=== PATIENT | female | born 1935 | race Caucasian/White ===

== ENCOUNTER 2018-08-30 19:05 | Emergency (ER) | payer MEDICARE, MEDICAID ==
[2018-08-30] MEDS ORDERED: LIDOCAINE 1% INJ-PF (10 MG/ML) 30 ML SDV ONE (20:29)
--- NOTE | 2018-08-30 21:08 | ER Document Report ---
ED General - General Chief Complaint: Wound Infection Stated Complaint: WOUND CHECK Time Seen by Provider: 08/30/18 19:32 Cannot obtain history due to: Dementia Notes: Patient is an 82-year-old female with history of dementia, chronic venous stasis in bilateral lower extremities, history of recurrent wounds to the bilateral lower extremities, presents from [facility] by EMS due to concerns of abscesses along her right lower extremity. His areas have apparently been present for the past several weeks. Patient been treated with a course of antibiotics while in the nursing facility without any effect. Patient was transported to the emergency department tonight due to concerns of failure of resolution. Nothing is apparently new or different that because transport. Patient is demented, unable to provide meaningful history. TRAVEL OUTSIDE OF THE [place] IN LAST 30 DAYS: No Past Medical History - General Information source: Patient - Social History Smoking Status: Never Smoker Frequency of alcohol use: None Drug Abuse: None Lives with: Custodial Family History: Reviewed & Not Pertinent Patient has suicidal ideation: No Patient has homicidal ideation: No - Past Medical History Cardiac Medical History: Reports: Hx Atrial Fibrillation Renal/ Medical History: Denies: Hx Peritoneal Dialysis Review of Systems - Review of Systems Notes: Constitutional: Negative for fever. HENT: Negative for sore throat. Eyes: Negative for visual changes. Cardiovascular: Negative for chest pain. Respiratory: Negative for shortness of breath. Gastrointestinal: Negative for abdominal pain, vomiting or diarrhea. Genitourinary: Negative for dysuria. Musculoskeletal: Negative for back pain. Skin: Positive for multiple abscesses of the right lower extremity Neurological: Negative for headaches, weakness or numbness. 10 point ROS negative except as marked above and in HPI. Physical Exam - Vital signs Vitals: Temp Resp BP Pulse Ox 98.5 F 16 99/58 L 100 08/30/18 19:12 08/30/18 19:12 08/30/18 19:12 08/30/18 19:12 Interpretation: Normal Notes: PHYSICAL EXAMINATION: GENERAL: Somewhat frail, elderly female in no acute distress HEAD: Atraumatic, normocephalic. EYES: Pupils equal round and reactive to light, extraocular movements intact, sclera anicteric, conjunctiva are normal. ENT: nares patent, oropharynx clear without exudates. Moist mucous membranes. NECK: Normal range of motion, supple without lymphadenopathy LUNGS: Breath sounds clear to auscultation bilaterally and equal. No wheezes rales or rhonchi. HEART: Regular rate and rhythm without murmurs ABDOMEN: Soft, nontender, normoactive bowel sounds. No guarding, no rebound. No masses appreciated. EXTREMITIES: Normal range of motion, no pitting or edema. No cyanosis. NEUROLOGICAL: No focal neurological deficits. Moves all extremities spontaneously and on command. PSYCH: Moderately anxious SKIN: Warm, Dry, normal turgor, There is a 2 x 2 centimeter abscess on the lateral aspect of the right lower externally just above the level of the knee. No surrounding erythema. There is a much smaller abscess approximately 0.25 x 0.25 cm overlying the proximal tibial plateau surface. Course - Re-evaluation Re-evalutation: 08/30/18 21:05 Patient presents with multiple abscesses on her right lower extremity. There was a 2 x 2 centimeter abscess on the lateral aspect of the right lower externally just above the level of the knee. This was incised and drained with expression of a large amount of purulent material. No surrounding erythema. There is a much smaller abscess approximately 0.25 x 0.25 cm overlying the proximal tibial plateau surface. This likewise was incised and drained with expression of approximately 1 mL of purulent material. Patient is otherwise very well in appearance. Has had chronic wounds on her lower extremity and the daughter at bedside is quite frustrated she states that this is been an ongoing issue for at least the last 1 month. The patient apparently was treated with oral antibiotics without any relief. No indication for labs or imaging at this point as patient is otherwise well in appearance, vitals within normal limits. No reported fever. Patient has been started on doxycycline and cephalexin. Wound dressing has been applied. I recommended outpatient follow-up with wound management. At this time will discharge with return precautions and follow-up recommendations. Verbal discharge instructions given a the bedside and opportunity for questions given. Medication warnings reviewed. Family is in agreement with this plan and has verbalized understanding of return precautions and the need for primary care follow-up in the next 24-72 hours. - Vital Signs Vital signs: Temp Pulse Resp BP Pulse Ox 97.4 F 20 104/66 98 08/30/18 22:01 08/30/18 20:01 08/30/18 22:00 08/30/18 22:01 Procedures - Incision and Drainage Right Leg Type: Complex, Multiple Anesthetic type: 1% Lidocaine mL's of anesthetic: 5 Blade size: 11 I&D procedure: Chlorprep applied Incision Method: Incision made by scalpel Amount/type of drainage: Total of 10 cc of purulent drainage expressed Discharge - Discharge Clinical Impression: Abscess of right lower extremity, Bilateral lower extremity edema Condition: Fair Disposition: HOME-SNF (ED ONLY) Additional Instructions: You were seen for an abscess that required drainage. Please clean this area with soap and water twice daily and apply a topical antibiotic. Dress the area after each cleaning. The patient needs to be followed up in wound management. These wounds require close attention to prevent progression to sepsis. I would also advised that the patient be placed in compression stockings 12 hours daily. Please return if you develop fever of greater than 100.4 F, vomiting, the pain at the site worsens, you notice spreading redness from the area, or you have any other symptoms that are concerning to you. Prescriptions: Cephalexin Monohydrate [Keflex 500 mg Capsule] 500 mg PO Q6H 7 Days capsule Doxycycline Hyclate 100 mg PO BID #14 capsule Referrals: VALERIA DENT MD [ACTIVE STAFF] - Follow up in 3-5 days
[2018-08-30 22:50] VITALS: BP 104/66
== END 2018-08-30 22:15 ==
LOC: ER 19:05
DX: L02.415 Cutaneous abscess of right lower limb (principal); R60.0 Localized edema; F03.90 Unspecified dementia, unspecified severity, without behavioral disturbance, psychotic disturbance, mood disturbance, and anxiety
CPT/HCPCS: 10061; 99284; J3490

== ENCOUNTER → 2018-12-22 | Outpatient (CLI) | payer MEDICARE, OTHER, MEDICAID ==
--- NOTE | 2018-12-23 11:39 | XCELERA REPORT ---
[address] [address] Lower Extremity Venous Evaluation Procedure: A bilateral duplex scan of the lower extremity veins was performed. The evaluation included responses to compression and other maneuvers with patient in the supine and standing positions to assess venous insufficiency. Right Sided Venous Evaluation Impressive subcutaneous edema. Deep venous system evaluation shows patent veins with no obstruction or significant reflux identified. Saphena Femoral junction: no reflux. Femoral vein reflux: no reflux Greater Saphenous vein, Proximal thigh: reflux: 3.5 seconds, 3.3 mm diameter. Greater Saphenous vein, Mid thigh: reflux: 1.0 seconds.4.2 mm diameter. Greater Saphenous vein, Distal thigh: reflux:None. Greater Saphenous vein, Proximal below knee: reflux: 1.5 seconds, 3.8 mm diameter. Greater Saphenous vein, Mid below knee: reflux: 2 seconds, 4.5mm diameter. Greater Saphenous vein, Distal below knee: reflux: 1.5 seconds, 3.8 mm diameter. No significant Perforators identified. Left Sided Venous Evaluation Deep venous system evaluation shows patent veins with reflux identified. Saphena Femoral junction: 0.1 second reflux. Femoral vein reflux: 0.8 second reflux. Popliteal vein reflux: no reflux. Greater Saphenous vein, Unable to evaluate. No significant Perforators identified. Interpretation Summary There is no evidence of deep vein thrombosis bilaterally. Significant superficial reflux on the right, edema also. Very limited study on the left with some deep reflux elucidated. Name: ZEB FREY Age: 83 yrs Gender: Female : 1935 Patient Status: Outpatient Patient Location: Study Date: 12/22/2018 10:40 AM Reason For Study: RT CALF ULCER Ordering Physician: BRUNILDA SMITH Performed By: Ko Altamirano : BRUNILDA SMITH > Nick Brian
--- NOTE | 2018-12-23 12:01 | XCELERA REPORT ---
[address] [address] Lower Extremity Arterial Evaluation Name: ZEB FREY Age: 83 yrs Gender: Female : 1935 Patient Status: Outpatient Patient Location: Study Date: 12/22/2018 10:13 AM Procedure: A color flow and duplex scan of the lower extremity arteries was performed bilaterally with velocity and waveform anaylsis. 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 Left Side Arterial Evaluation Normal velocity and triphasic waveforms noted from the Common Femoral artery to the infrageniculate vessels Ankle Brachial index not obtained due to inability to cooperate. Interpretation Summary No hemodynamically significant lesions in the bilateral lower extremities, on duplex imaging, at rest. : BRUNILDA SMITH > Nick Brian
== END ==
LOC: SP 09:33
PROVIDERS: ATTEND Nurse Practitioner Family
DX: L97.212 Non-pressure chronic ulcer of right calf with fat layer exposed (principal)
CPT/HCPCS: 93925; 93970

== ENCOUNTER 2018-12-26 10:45 | Emergency (ER) | payer MEDICARE, OTHER, MEDICAID ==
--- NOTE | 2018-12-26 11:18 | ER Document Report ---
ED Extremity Problem, Lower - General Chief Complaint: Knee Pain Stated Complaint: POSSIBLE INFECTION Time Seen by Provider: 12/26/18 11:06 Primary Care Provider: BRUNILDA SMITH MEETING/EVENT PLANNER, MEETING/EVENT PLANNER [Primary Care Provider] - Follow up as needed Notes: 83-year-old female presents to the ER with a red swollen painful leg. Patient has had issues with cellulitis and abscess of her right lower extremity. The patient is seen by wound care. An x-ray was done this morning which showed questionable osteomyelitis of the proximal tibia. Radiologist called the patient back to the ER. Patient is very hard of hearing and not a good hist orian. States her leg aches but it aches all the time she denies fever chills. She is [place] any other complaints no chest pain or shortness of breath. TRAVEL OUTSIDE OF THE [place] IN LAST 30 DAYS: No - Related Data Allergies/Adverse Reactions: No Known Allergies Allergy (Unverified 12/26/18 11:11) Past Medical History - Social History Smoking Status: Never Smoker Chew tobacco use (# tins/day): No Frequency of alcohol use: None Drug Abuse: None Family History: Reviewed & Not Pertinent Patient has suicidal ideation: No Patient has homicidal ideation: No - Past Medical History Cardiac Medical History: Reports: Hx Atrial Fibrillation Renal/ Medical History: Denies: Hx Peritoneal Dialysis Past Surgical History: Reports: Hx Orthopedic Surgery Review of Systems - Review of Systems Constitutional: denies: Chills, Fever Cardiovascular: Edema. denies: Chest pain Respiratory: denies: Short of breath Musculoskeletal: Joint pain Skin: Change in color, Lesions -: Yes All other systems reviewed and negative Physical Exam - Vital signs Vitals: Temp 98.4 F 12/26/18 10:57 - Notes Notes: GENERAL_APPEARANCE: well_nourished, alert, cooperative VITALS: reviewed, see vital signs table. HEAD: no_swelling\tenderness on the head. EYES: conjunctiva_clear. NOSE: no_nasal_discharge. MOUTH: (-)decreased moisture. THROAT: no_tonsilar_inflammation, no_airway_obstruction. no_lymphadenopathy NECK: supple, no_neck_tenderness, (-)thyromegaly. BACK: no_back_tenderness. CHEST_WALL: no_chest_tenderness. LUNGS: no_wheezing, no_rales, no_rhonchi, (-)accessory muscle use, good air exchange bilateral. HEART: normal_rate, normal_rhythm ABDOMEN: normal_BS, soft, no_abd_tenderness, (-)guarding, (-)rebound, no_or ganomegaly, no_abd_masses. EXTREMITIES: 3+ pitting edema bilateral there multiple weeping wounds on both legs more so the right and the left there is a ulcer present on the right leg upper about 3 x 4 cm. There is redness mild cellulitis. The knee itself is mildly swollen there is a midline incision on the right. Consistent with knee replacement. There is no crepitus or subcutaneous emphysema or pulses present distal. SKIN: warm, dry, good_color, no_rash. MENTAL_STATUS: speech_clear, oriented_X_3, normal_affect, responds_appropriately to questions. Course - Re-evaluation Re-evalutation: 12/26/18 11:17 83-year-old female presents with concern for worsening leg infection and osteomyelitis. Patient has had a knee replacement years back and there may be osteomyelitis. I spoken with interventional radiology who will aspirate the joint. We will send fluid for evaluation. Otherwise we will do lactic acid and septic work-up. 12/26/18 16:01 She was sent over there for aspiration but there was not a joint effusion as previously thought a small amount of fluid was only able to be aspirated. This was sent for Gram stain and culture but there was not enough fluid to do cell count or differential. White count was 10.6. She does not have a fever sed rate was below 100. Certainly osteomyelitis was a consideration however the patient does have terrible lymphedema both legs and does have a little bit of likely chronic infection. I have called over to wound care to the provider there. They are very familiar with the patient. I think the plan we are going to do is let the patient go back to the custodial. They will work the patient up further for her chronic leg wounds and she may need an MRI of the knee to differentiate further if there is osteomyelitis there. The Gram stain and culture of the small amount of fluid is still pending. Again the patient has chronic lymphedema which is likely the cause of what was thought to be a joint effusion. Wound care we will follow-up with the patient is able to have an MRI of her knee then that is what I would recommend. As of now I think it is prudent just to wait to see if anything grows out of the culture of the aspiration otherwise I think this is likely just due to her chronic lymphedema transudate of fluid. Wound care has agreed to follow the patient up. Spoke at length with the patient and she is agreeable to this and is actually demanding to go home at this time. - Vital Signs Vital signs: Temp Pulse Resp BP Pulse Ox 98.3 F 20 103/51 L 97 12/26/18 12:27 12/26/18 15:01 12/26/18 15:01 12/26/18 15:01 - Laboratory Result Diagrams: 12/26/18 11:30 12/26/18 11:30 Laboratory results interpreted by me: 12/26/18 12/26/18 12/26/18 11:30 11:30 11:30 WBC 10.6 H RBC 3.51 L Hgb 10.9 L Hct 33.2 L RDW 15.5 H Seg Neutrophils % 79.0 H Absolute Neutrophils 8.4 H ESR 69 H Carbon Dioxide 31 H C-React Prot High Sens > 15.0000 H - Diagnostic Test Radiology reviewed: Reports reviewed Radiology results interpreted by me: 12/26/18 16:01 Hip Aspiration/Injection 12/26/18 00:00 IMPRESSION: Right knee aspirated under fluoroscopy, fluid sent for Gram stain culture and sensitivity Guidance Fluoroscopy 12/26/18 11:11 IMPRESSION: Right knee aspirated under fluoroscopy, fluid sent for Gram stain culture and sensitivity Discharge - Discharge Clinical Impression: Leg wound, right Qualifiers: Encounter type: initial encounter Qualified Code(s): S81.801A - Unspecified open wound, right lower leg, initial encounter Condition: Good Disposition: HOME, SELF-CARE Instructions: Foot or Leg Ulcer ([facility]) Additional Instructions: Please follow-up with your program eligibility specialist. They are aware of the findings. If you develop any fever return to the ER immediately Referrals: BRUNILDA SMITH NP, MEETING/EVENT PLANNER [Primary Care Provider] - Follow up as needed
[2018-12-26 11:58] LABS: ABSOLUTE BASOPHILS # (AUTO) 0.1 10^3/uL (0.0-0.2); ABSOLUTE EOSINOPHILS # (AUTO) 0.2 10^3/uL (0.0-0.6); ABSOLUTE LYMPHOCYTES (AUTO) 1.5 10^3/uL (0.5-4.7); ABSOLUTE MONOCYTES (AUTO) 0.4 10^3/uL (0.1-1.4); ABSOLUTE NEUT (AUTO) 8.4 10^3/uL (1.7-8.2); BASOPHILS % (AUTO) 1.2 % (0-2); EOSINOPHILS % (AUTO) 1.9 % (0-6); HEMATOCRIT 33.2 % (36.0-47.0); HEMOGLOBIN 10.9 g/dL (12.0-15.5); LYMPHOCYTES % (AUTO) 13.9 % (13-45); MEAN CORPUSCULAR HEMOGLOBIN 31.1 pg (27.0-33.4); MEAN CORPUSCULAR HGB CONC 32.9 g/dL (32.0-36.0); MEAN CORPUSCULAR VOLUME 95 fl (80-97); PLATELET COUNT 279 10^3/uL (150-450); RED BLOOD COUNT 3.51 10^6/uL (3.72-5.28); RED CELL DISTRIBUTION WIDTH 15.5 % (11.5-14.0); TOTAL CELLS COUNTED % (AUTO) 100 %; WHITE BLOOD COUNT 10.6 10^3/uL (4.0-10.5)
[2018-12-26 12:22] LABS: ANION GAP 5 (5-19); BLOOD UREA NITROGEN 18 mg/dL (7-20); CALCIUM 8.9 mg/dL (8.4-10.2); CARBON DIOXIDE 31 mmol/L (22-30); CHLORIDE 102 mmol/L (98-107); GLUCOSE 109 mg/dL (75-110); POTASSIUM 4.5 mmol/L (3.6-5.0); SODIUM 137.8 mmol/L (137-145)
[2018-12-26 12:38] LABS: ERYTHROCYTE SEDIMENTATION RATE 69 mm/hr (0-30)
--- NOTE | 2018-12-26 13:13 | RADIOLOGY REPORT (SQ) ---
EXAM DESCRIPTION: FLUORO/NEEDLE PLACEMENT; INJECT/ASPIR HIP/SHLDR/KNEE COMPLETED DATE/TIME: 12/26/2018 12:29 pm; 12/26/2018 12:32 pm REASON FOR STUDY: Fluoroscopy guided joint aspiration right knee; OSTEOMYELITIS IN RIGHT KNEE COMPARISON: Right knee films 12/26/2018 FLUOROSCOPY TIME: 32 seconds 1 digital radiographic image saved to PACS. TECHNIQUE: Fluoroscopic guided right knee aspirate LIMITATIONS: None. PROCEDURE: After written consent and assessment were obtained, the patient was brought into the fluo roscopy room and placed supine on the table. The patient's right knee was prepped in a sterile fashi on and an entry site was selected under live fluoroscopic guidance. The entry site was anesthetized w ith 1% lidocaine. A 18 gauge needle was advanced through the skin and into the right knee suprapatell ar recess. After approximately 2 ml was drained, the needle was removed and a sterile bandage was pl aced of the site. Specimens were sent to microbiology for Gram stain culture and sensitivity. Findi ngs discussed with Dr. Negro in the emergency room. FINDINGS: Right knee aspirated, fluid sent for Gram stain culture and sensitivity IMPRESSION: Right knee aspirated under fluoroscopy, fluid sent for Gram stain culture and sensitivit y COMMENT: Patient medication list reviewed: Yes- Quality ID# [id number]:Eligible professional attests to doc umenting in the medical record they obtained, updated, or reviewed the patient's current medications. . Quality ID 145: Final reports for procedures using fluoroscopy that document radiation exposure jace vamsi, or exposure time and number of fluorographic images (if radiation exposure indices are not avail able) TECHNICAL DOCUMENTATION: JOB ID: [id number] [employer]- All Rights Reserved Reading location - IP/workstation name: [email or web address]-
--- NOTE | 2018-12-26 13:13 | RADIOLOGY REPORT (SQ) ---
EXAM DESCRIPTION: FLUORO/NEEDLE PLACEMENT; INJECT/ASPIR HIP/SHLDR/KNEE COMPLETED DATE/TIME: 12/26/2018 12:29 pm; 12/26/2018 12:32 pm REASON FOR STUDY: Fluoroscopy guided joint aspiration right knee; OSTEOMYELITIS IN RIGHT KNEE COMPARISON: Right knee films 12/26/2018 FLUOROSCOPY TIME: 32 seconds 1 digital radiographic image saved to PACS. TECHNIQUE: Fluoroscopic guided right knee aspirate LIMITATIONS: None. PROCEDURE: After written consent and assessment were obtained, the patient was brought into the fluo roscopy room and placed supine on the table. The patient's right knee was prepped in a sterile fashi on and an entry site was selected under live fluoroscopic guidance. The entry site was anesthetized w ith 1% lidocaine. A 18 gauge needle was advanced through the skin and into the right knee suprapatell ar recess. After approximately 2 ml was drained, the needle was removed and a sterile bandage was pl aced of the site. Specimens were sent to microbiology for Gram stain culture and sensitivity. Findi ngs discussed with Dr. Negro in the emergency room. FINDINGS: Right knee aspirated, fluid sent for Gram stain culture and sensitivity IMPRESSION: Right knee aspirated under fluoroscopy, fluid sent for Gram stain culture and sensitivit y COMMENT: Patient medication list reviewed: Yes- Quality ID# [id number]:Eligible professional attests to doc umenting in the medical record they obtained, updated, or reviewed the patient's current medications. . Quality ID 145: Final reports for procedures using fluoroscopy that document radiation exposure jace vamsi, or exposure time and number of fluorographic images (if radiation exposure indices are not avail able) TECHNICAL DOCUMENTATION: JOB ID: [id number] [email or web address]- All Rights Reserved Reading location - IP/workstation name: [email or web address]-
[2018-12-26 16:36] VITALS: BP 97/58
== END 2018-12-26 16:41 | disposition home or self-care (01) ==
LOC: ER 10:45
DX: S81.801A Unspecified open wound, right lower leg, initial encounter (principal); I48.91 Unspecified atrial fibrillation; R60.9 Edema, unspecified; X58.XXXA Exposure to other specified factors, initial encounter
CPT/HCPCS: 20610; 36415; 77002; 80048; 83605; 85025; 85652; 86141; 87040; 87070; 87075; 87077; 87186; 87205; 99285

== ENCOUNTER → 2018-12-26 | Outpatient (CLI) | payer MEDICARE, OTHER, MEDICAID ==
--- NOTE | 2018-12-26 10:07 | RADIOLOGY REPORT (SQ) ---
EXAM DESCRIPTION: KNEE RIGHT 2 VIEWS COMPLETED DATE/TIME: 12/26/2018 9:14 am REASON FOR STUDY: CUTANEOUS ABCESS OF R LOWER LIMB COMPARISON: None. NUMBER OF VIEWS: Two views. TECHNIQUE: AP and lateral radiographic images acquired of the right knee. LIMITATIONS: None. FINDINGS: MINERALIZATION: Osteoporotic BONES: Total knee replacement with patellar resurfacing. There is lucency between the tibial compone nt and [place] tibia worrisome for loosening or infection There is bony resorption along the inferior half of the patella worrisome for osteomyelitis. JOINT: Small suprapatellar knee joint effusion. There is inflammation along Hoffa's fat pad SOFT TISSUES: Prepatellar cellulitis is present with soft tissue swelling OTHER: No other significant finding. IMPRESSION: Findings worrisome for osteomyelitis involving the inferior half of the patella. Inflam mation in Hoffa's fat pad with joint effusion is worrisome for septic arthritis. COMMENT: Pertinent findings on the imaging study reported as a CRITICAL RESULT to Fannie Wu RN at09:55 on 12/26/2018. Category of Critical Result: septic/infected joint TECHNICAL DOCUMENTATION: JOB ID: [id number] [employer]- All Rights Reserved Reading location - IP/workstation name: [email or web address]
== END ==
LOC: RAD 08:58
PROVIDERS: ATTEND Nurse Practitioner Family
DX: L02.415 Cutaneous abscess of right lower limb (principal); M86.8X6 Other osteomyelitis, lower leg; Z96.651 Presence of right artificial knee joint

== ENCOUNTER → 2019-01-08 | Outpatient (CLI) | payer MEDICARE ==
--- NOTE | 2019-01-08 13:29 | RADIOLOGY REPORT (SQ) ---
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 Multiplanar images include fat sensitive s equences as T1, water sensitive sequences as FST2 or STIR, cartilage sensitive sequences as FSPD, and gradient echo sequences. LIMITATIONS: Metallic joint replacement, mental attenuation pulse sequences utilized. FINDINGS: There is a superficial skin ulcer over the anterior right knee soft tissues, just medial t o the anterior tibial tubercle. A sinus tract from this wound is seen coursing from the skin surface down to the anterior edge of the medial tibial plateau adjacent to hardware. This is best shown on sagittal image 17 and axial images 18-23. Prior joint space aspiration on 12/26/2018 yielded a cultur e positive for staph. Findings are worrisome for infected tibial prosthesis with sinus tract to the skin. There is diffuse cellulitis with skin thickening and subcutaneous edema along the medial and lateral aspects of the knee joint. JOINT AND BURSAE: No gross suprapatellar knee joint effusion. However, there is synovial thickening medially, best shown on axial images 12-17. No Spring's cyst. BONE CORTEX AND MARROW: Bone cortex between the prosthesis and knik bone is not visualized due to f erromagnetic artifact. Distal femoral metaphysis bone marrow signal is normal. Proximal tibial meta physis bone marrow signal is grossly normal ACL: Joint replacement PCL: Joint replaced MCL: Joint replacement LCL: Joint replacement MEDIAL MENISCUS: Not visualized, joint replacement LATERAL MENISCUS: Not visualized, joint replacement MEDIAL COMPARTMENT: Joint replacement LATERAL COMPARTMENT: Joint replacement PATELLA: Patellar silastic component of the knee replacement is identified. Adjacent lower half of the patella is partially fragmented and demineralized worrisome for infection EXTENSOR MECHANISM: Intact. Quadriceps and patella tendons normal. SOFT TISSUES: Diffuse cellulitis in the skin and subcutaneous fat. Profound atrophy of the quadricep s and calf muscles OTHER: No other significant finding. IMPRESSION: Findings worrisome for a draining sinus tract from the medial tibial plateau. Indistinct lower pole patella, worrisome for infection TECHNICAL DOCUMENTATION: JOB ID: [id number] [employer]- All Rights Reserved Reading location - IP/workstation name: [email or web address]
== END ==
LOC: RAD 10:27
PROVIDERS: ATTEND Nurse Practitioner Family
DX: L97.814 Non-pressure chronic ulcer of other part of right lower leg with necrosis of bone (principal); Z96.651 Presence of right artificial knee joint

== ENCOUNTER → 2019-01-21 | Day surgery (SDC) | payer MEDICARE, OTHER, MEDICAID ==
[~2019-01-21] MED LIST: CEFAZOLIN 2 GM/D5W RTU 2 GM/50 ML RTUPB IV PRN; NORMAL SALINE 10 ML SDV (AFTER EACH USE) IV PRN; NORMAL SALINE 10 ML SDV (SCHEDULED) IV SCH
--- NOTE | 2019-01-21 11:24 | RADIOLOGY REPORT (SQ) ---
EXAM DESCRIPTION: PICC INSERTION; FLUORO/CV PLACEMENT; U/S GUIDE FOR VASCULAR ACCESS COMPLETED DATE/TIME: 01/21/2019 11:00 am REASON FOR STUDY: IV ABX; INFECT/INFLM REACTION DUE TO UNSP INT JOINT PROSTH, INIT (T84.50XA) T84.50 XA INFECT/INFLM REACTION DUE TO UNSP INT JOINT PROSTH, COMPARISON: None. FLUOROSCOPY TIME: 1 minutes 47 seconds 2 images saved to PACS. TECHNIQUE: Fluoroscopic and ultrasound guided PICC placement. LIMITATIONS: None. PROCEDURE: After written consent and assessment were obtained, the patient was brought into the [facility] roscopy room and placed supine on the table. Ultrasound evaluation of potential access sites were per formed. After successfully identifying a patent right brachial vein, the right arm was prepped and dr aped in a sterile fashion along with the ultrasound probe. The entry site was anesthetized with 1% li docaine. A 21 gauge 7 cm needle was advanced through the skin and into the brachial vein under live u ltrasound guidance. An ultrasound image was saved to PACS confirming access site. A .018 guide wire was then inserted through the needle and into the venous system. The needle was then removed and an 11 blade scalpel was used to make a 1cm skin incision. A 5 fr peel-away sheath was advanced over the wire and into the venous system. A measurement was then made using the existing wire and live fluoro scopic guidance. The wire was then removed and trimmed. The PICC was advanced through the peel-away s carleen and into the venous system. The peel-away sheath was removed and the catheter was adhered to th e patients arm with a stat lock. The catheter was then aspirated and flushed and a sterile bandage wa s placed over the access site. A fluoroscopic spot image was saved to PACS confirming the catheter t ip within the superior vena cava. IMPRESSION: SUCCESSFUL PLACEMENT OF A 5 FR DUAL LUMEN 35 CM PICC IN THE RIGHT BASILIC VEIN. COMMENT: Patient medication list reviewed: Yes- Quality ID# 130:Eligible professional attests to doc umenting in the medical record they obtained, updated, or reviewed the patient's current medications. . Quality ID 145: Final reports for procedures using fluoroscopy that document radiation exposure jace vamsi, or exposure time and number of fluorographic images (if radiation exposure indices are not avail able) Quality ID #76: The patient was prepped and draped using maximum sterile barrier technique including cap, mask, sterile gown, sterile gloves, a large sterile sheet, hand hygiene, and 2% Chlorhexidine fo r cutaneous antisepsis. When ultrasound is used, sterile ultrasound techniques are followed requiring sterile gel and sterile probes. TECHNICAL DOCUMENTATION: JOB ID: [id number]- All Rights Reserved rev-12/27 Reading location - IP/workstation name: [email or web address]
--- NOTE | 2019-01-21 11:24 | RADIOLOGY REPORT (SQ) ---
EXAM DESCRIPTION: PICC INSERTION; FLUORO/CV PLACEMENT; U/S GUIDE FOR VASCULAR ACCESS COMPLETED DATE/TIME: 01/21/2019 11:00 am REASON FOR STUDY: IV ABX; INFECT/INFLM REACTION DUE TO UNSP INT JOINT PROSTH, INIT (T84.50XA) T84.50 XA INFECT/INFLM REACTION DUE TO UNSP INT JOINT PROSTH, COMPARISON: None. FLUOROSCOPY TIME: 1 minutes 47 seconds 2 images saved to PACS. TECHNIQUE: Fluoroscopic and ultrasound guided PICC placement. LIMITATIONS: None. PROCEDURE: After written consent and assessment were obtained, the patient was brought into the [facility] roscopy room and placed supine on the table. Ultrasound evaluation of potential access sites were per formed. After successfully identifying a patent right brachial vein, the right arm was prepped and dr aped in a sterile fashion along with the ultrasound probe. The entry site was anesthetized with 1% li docaine. A 21 gauge 7 cm needle was advanced through the skin and into the brachial vein under live u ltrasound guidance. An ultrasound image was saved to PACS confirming access site. A .018 guide wire was then inserted through the needle and into the venous system. The needle was then removed and an 11 blade scalpel was used to make a 1cm skin incision. A 5 fr peel-away sheath was advanced over the wire and into the venous system. A measurement was then made using the existing wire and live fluoro scopic guidance. The wire was then removed and trimmed. The PICC was advanced through the peel-away s carleen and into the venous system. The peel-away sheath was removed and the catheter was adhered to th e patients arm with a stat lock. The catheter was then aspirated and flushed and a sterile bandage wa s placed over the access site. A fluoroscopic spot image was saved to PACS confirming the catheter t ip within the superior vena cava. IMPRESSION: SUCCESSFUL PLACEMENT OF A 5 FR DUAL LUMEN 35 CM PICC IN THE RIGHT BASILIC VEIN. COMMENT: Patient medication list reviewed: Yes- Quality ID# 130:Eligible professional attests to doc umenting in the medical record they obtained, updated, or reviewed the patient's current medications. . Quality ID 145: Final reports for procedures using fluoroscopy that document radiation exposure jace vamsi, or exposure time and number of fluorographic images (if radiation exposure indices are not avail able) Quality ID #76: The patient was prepped and draped using maximum sterile barrier technique including cap, mask, sterile gown, sterile gloves, a large sterile sheet, hand hygiene, and 2% Chlorhexidine fo r cutaneous antisepsis. When ultrasound is used, sterile ultrasound techniques are followed requiring sterile gel and sterile probes. TECHNICAL DOCUMENTATION: JOB ID: [id number] [employer]- All Rights Reserved rev-12/27 Reading location - IP/workstation name: [email or web address]
[2019-01-21 13:31] VITALS: BP 98/50
== END ==
LOC: RAD 09:21
PROVIDERS: ATTEND Surgery
DX: T84.50XA Infection and inflammatory reaction due to unspecified internal joint prosthesis, initial encounter (principal); X58.XXXA Exposure to other specified factors, initial encounter
CPT/HCPCS: 36569; 77001; 76937; C1769; J1642

== ENCOUNTER 2019-06-27 07:17 | Inpatient (IN) | payer MEDICARE, OTHER, MEDICAID ==
[2019-06-27] MEDS ORDERED: RINGERS LACTATED IV PRN (08:19)
[2019-06-27 08:23] LABS: ABSOLUTE BASOPHILS # (AUTO) 0.1 10^3/uL (0.0-0.2); ABSOLUTE EOSINOPHILS # (AUTO) 0.1 10^3/uL (0.0-0.6); ABSOLUTE LYMPHOCYTES (AUTO) 1.5 10^3/uL (0.5-4.7); ABSOLUTE MONOCYTES (AUTO) 0.7 10^3/uL (0.1-1.4); ABSOLUTE NEUT (AUTO) 12.1 10^3/uL (1.7-8.2); BASOPHILS % (AUTO) 0.7 % (0-2); EOSINOPHILS % (AUTO) 0.6 % (0-6); HEMATOCRIT 28.9 % (36.0-47.0); HEMOGLOBIN 9.7 g/dL (12.0-15.5); LYMPHOCYTES % (AUTO) 10.5 % (13-45); MEAN CORPUSCULAR HEMOGLOBIN 30.3 pg (27.0-33.4); MEAN CORPUSCULAR HGB CONC 33.6 g/dL (32.0-36.0); MEAN CORPUSCULAR VOLUME 90 fl (80-97); MONOCYTES % (AUTO) 4.6 % (3-13); PLATELET COUNT 217 10^3/uL (150-450); RED CELL DISTRIBUTION WIDTH 15.6 % (11.5-14.0); SEGMENTED NEUTROPHILS % (AUTO) 83.6 % (42-78); TOTAL CELLS COUNTED % (AUTO) 100 %; WHITE BLOOD COUNT 14.5 10^3/uL (4.0-10.5)
--- NOTE | 2019-06-27 08:24 | ER Document Report ---
ED Fever - General Chief Complaint: Fever Stated Complaint: FEVER/SEPSIS Time Seen by Provider: 06/27/19 08:00 Information source: Emergency Med Personnel, Outside Facility Records Cannot obtain history due to: Dementia Notes: 83-year-old female presents for altered mental status and fever. Patient's temperature was 101.5 at intermediate and Tylenol was given around 230 this morning at the facility. Patient's lactic was 0.5 per EMS. She is currently being treated for right hip decubitus ulcer and cutaneous abscesses of her right lower limb. Has past medical history significant for dementia, insufficiency, bradycardia, allergic contact dermatitis, hypotension, colitis of the right l ower limb thyroid, vitamin D deficiency, hypokalemia, atrial fibrillation, lymphedma, and UTI. It appears that patient is currently on Bactrim for bacterial infection of right lateral hip which appears to be started on 06/25 days. Patient is also on Eliquis for A. fib and Lasix for edema. Patient is also on levothyroxine for and potassium. TRAVEL OUTSIDE OF THE [place] IN LAST 30 DAYS: No - Related Data Allergies/Adverse Reactions: No Known Allergies Allergy (Unverified 12/26/18 11:11) Past Medical History - Social History Smoking Status: Unknown if Ever Smoked Family History: Reviewed & Not Pertinent - Past Medical History Cardiac Medical History: Reports: Hx Atrial Fibrillation, Hx Hypertension Denies: Hx Coronary Artery Disease, Hx Heart Attack Pulmonary Medical History: Denies: Hx Asthma, Hx Bronchitis, Hx COPD, Hx Pneumonia Neurological Medical History: Denies: Hx Cerebrovascular Accident, Hx Seizures Renal/ Medical History: Denies: Hx Peritoneal Dialysis Musculoskeletal Medical History: Denies Hx Arthritis Past Surgical History: Reports: Hx Orthopedic Surgery Review of Systems - Review of Systems -: Yes ROS unobtainable due to patient's medical condition - Dementia and confusion Physical Exam - Vital signs Vitals: Pulse Ox 92 06/27/19 07:29 - Notes Notes: GENERAL: Well-appearing, well-nourished and in no acute distress. HEAD: Atraumatic, normocephalic. EYES: Pupils equal round and reactive to light, extraocular movements intact, sclera anicteric, conjunctiva are normal. NECK: Normal range of motion, supple without lymphadenopathy or JVD. LUNGS: Breath sounds clear to auscultation bilaterally and equal. No wheezes rales or rhonchi. HEART: Regular rate and rhythm without murmurs, rubs or gallops. ABDOMEN: Soft, nontender. No guarding, no rebound. No masses appreciated. EXTREMITIES: Normal range of motion, no pitting or edema. No clubbing or cyanosis. NEUROLOGICAL: Confused. PSYCH: Normal mood, normal affect. SKIN: Warm, Dry, stage II decubitus ulcer noted to right hip, various small cutaneous abscesses noted to right leg Course - Re-evaluation Re-evalutation: 06/27/19 83-year-old female presents from intermediate for altered mental status and fever. Patient's temp was 101.5 at ED and patient was given Tylenol. Sepsis protocol was initiated. Blood cultures were drawn. Sepsis bolus given. Broad-spectrum antibiotics were given. 06/27/19 09:27 CXR concerning for possible pneumonia. Azithromycin IV added to cover for atypical pneumonia. Mild leukocytosis on labwork. Pt to be admitted for sepsis/pneumonia. 06/27/19 09:36 Discussed plan of care with attending, Dr. Fontaine, who agrees. - Vital Signs Vital signs: Temp Pulse Resp BP Pulse Ox 99.9 F 78 20 96/54 L 95 06/27/19 07:48 06/27/19 07:48 06/27/19 10:06 06/27/19 10:06 06/27/19 10:06 - Laboratory Result Diagrams: 06/27/19 07:32 06/27/19 07:32 Laboratory results interpreted by me: 06/27/19 06/27/19 06/27/19 07:32 07:32 07:32 WBC 14.5 H RBC 3.20 L Hgb 9.7 L Hct 28.9 L RDW 15.6 H Lymph % (Auto) 10.5 L Absolute Neuts (auto) 12.1 H Seg Neutrophils % 83.6 H PT 17.1 H VBG pH Sodium 132.8 L Glucose 124 H AST 13 L Total Protein 5.1 L Albumin 2.4 L Urine Protein Urine Blood Urine Urobilinogen Ur Leukocyte Esterase Urine Ascorbic Acid 06/27/19 06/27/19 07:32 08:10 WBC RBC Hgb Hct RDW Lymph % (Auto) Absolute Neuts (auto) Seg Neutrophils % PT VBG pH 7.45 H Sodium Glucose AST Total Protein Albumin Urine Protein 100 H Urine Blood SMALL H Urine Urobilinogen 4.0 H Ur Leukocyte Esterase LARGE H Urine Ascorbic Acid 40 H Discharge - Discharge Clinical Impression: Pneumonia Qualifiers: Pneumonia type: due to unspecified organism Laterality: right Lung location: upper lobe of lung Qualified Code(s): J18.9 - Pneumonia, unspecified organism Sepsis Qualifiers: Sepsis type: sepsis due to unspecified organism Sepsis acute organ dysfunction status: without acute organ dysfunction Qualified Code(s): A41.9 - Sepsis, unspecified organism Fever Qualifiers: Fever type: unspecified Qualified Code(s): R50.9 - Fever, unspecified Altered mental status Qualifiers: Altered mental status type: unspecified Qualified Code(s): R41.82 - Altered mental status, unspecified Condition: Stable Disposition: ADMITTED INPATIENT Admitting Provider: Carly (Hospitalist)
[2019-06-27 08:25] LABS: VENOUS BLOOD BASE EXCESS 2.4 mmol/L; VENOUS BLOOD HCO3 26.5 mmol/L (20-32); VENOUS BLOOD PCO2 38.6 mmHg (35-63); VENOUS BLOOD PH 7.45 (7.30-7.42)
[2019-06-27 08:27] LABS: APPEARANCE,URINE CLOUDY; BILIRUBIN,URINE NEGATIVE (NEGATIVE); COLOR,URINE AMBER; GLUCOSE, URINE NEGATIVE (NEGATIVE); KETONES,URINE NEGATIVE (NEGATIVE); LEUKOCYTE ESTERASE,URINE LARGE (NEGATIVE); NITRITE,URINE NEGATIVE (NEGATIVE); PROTEIN,URINE 100 mg/dL (NEGATIVE); URINE SPECIFIC GRAVITY 1.023
[2019-06-27 08:27] LABS: INTERNATIONAL RATION (INR) 1.38; PROTHROMBIN TIME 17.1 SEC (11.4-15.4)
[2019-06-27] MEDS ORDERED: VANCOMYCIN HCL 0 MG in DEXTROSE 5%-WATER 250 ML IV NR ×2 (08:30→10:30)
[2019-06-27 08:32] LABS: ALBUMIN 2.4 g/dL (3.5-5.0); ALKALINE PHOSPHATASE 82 U/L (38-126); ANION GAP 8 (5-19); ASPARTATE AMINO TRANSFERASE 13 U/L (14-36); BILIRUBIN,DIRECT 0.3 mg/dL (0.0-0.4); BILIRUBIN,TOTAL 0.7 mg/dL (0.2-1.3); BLOOD UREA NITROGEN 19 mg/dL (7-20); CALCIUM 8.4 mg/dL (8.4-10.2); CARBON DIOXIDE 27 mmol/L (22-30); CHLORIDE 98 mmol/L (98-107); GLUCOSE 124 mg/dL (75-110); POTASSIUM 3.9 mmol/L (3.6-5.0); TOTAL PROTEIN 5.1 g/dL (6.3-8.2)
[2019-06-27] MEDS ORDERED: PIPERACILLIN SODIUM/TAZOBACTAM 4.5 GM in NORMAL SALINE 100 ML IV PRN ×2 (08:46→09:30)
--- NOTE | 2019-06-27 09:25 | RADIOLOGY REPORT (SQ) ---
EXAM DESCRIPTION: CHEST SINGLE VIEW COMPLETED DATE/TIME: 06/27/2019 8:42 am REASON FOR STUDY: ? Sepsis COMPARISON: None. EXAM PARAMETERS: NUMBER OF VIEWS: One view. TECHNIQUE: Single frontal radiographic view of the chest acquired. RADIATION DOSE: NA LIMITATIONS: None. FINDINGS: LUNGS AND PLEURA: Densities are seen over the anterior right 1st 2nd and 3rd ribs which co uld either be patchy upper lobe airspace disease or old healed rib fractures. There is patchy bibasilar airspace disease atelectasis versus pneumonia. No pleural effusion. No pneumothorax. MEDIASTINUM AND HILAR STRUCTURES: No masses. Contour normal. HEART AND VASCULAR STRUCTURES: Moderate cardiomegaly BONES: No gross acute findings HARDWARE: None in the chest. OTHER: No other significant finding. IMPRESSION: Bibasilar airspace disease atelectasis versus pneumonia. Densities over the right upper lobe could be upper lobe airspace disease or healed rib fractures TECHNICAL DOCUMENTATION: JOB ID: [id number] [employer]- All Rights Reserved Reading location - IP/workstation name: [email or web address]
[2019-06-27] MEDS ORDERED: AZITHROMYCIN INJ 500 MG VIAL IV ONE (09:26)
--- NOTE | 2019-06-27 10:14 | PDOC H&P ---
History of Present Illness Admission Date/PCP: 06/27/2019 VALERIA DENT MD Patient complains of: Fever History of Present Illness: ZEB FREY is a 83 year old female from [facility] who presents to the ER for altered mental status and fever. Patient temperature 101.5 at snf Tylenol was given around 230 this morning. She is being currently being treated for a right hip decubitus ulcer and cutaneous abscess of her right lower extremity. Has a history significant for dementia, and insufficiency, bradycardia, allergic contact dermatitis, hypertension, and colitis of the right lower extremity. Patient currently taking Bactrim at [facility]. She had no treatment other than what is been mentioned and no aggravating factors. Past Medical History Cardiac Medical History: Reports: Atrial Fibrillation, Hypertension Denies: Coronary Artery Disease, Myocardial Infarction Pulmonary Medical History: Denies: Asthma, Bronchitis, Chronic Obstructive Pulmonary Disease (COPD), Pneumonia Neurological Medical History: Denies: Seizures Musculoskeltal Medical History: Denies: Arthritis Hematology: Denies: Anemia Past Surgical History Past Surgical History: Reports: Orthopedic Surgery Social History Information Source: Patient Lives with: [facility] Smoking Status: Never Smoker Electronic Cigarette use?: No Frequency of Alcohol Use: None Hx Recreational Drug Use: No Drugs: None Hx Prescription Drug Abuse: No - Advance Directive Resuscitation Status: Full Code Family History Family History: Hypertension Parental Family History Reviewed: Yes Children Family History Reviewed: Yes Sibling(s) Family History Reviewed.: Yes Medication/Allergy Home Medications: Cephalexin Monohydrate [Keflex 500 mg Capsule] 500 mg PO Q6H 7 Days capsule 08/30/18 Doxycycline Hyclate 100 mg PO BID #14 capsule 08/30/18 Allergies/Adverse Reactions: No Known Allergies Allergy (Unverified 12/26/18 11:11) Review of Systems Constitutional: PRESENT: fever(s). ABSENT: chills, headache(s), weight gain, weight loss Eyes: ABSENT: visual disturbances Ears: ABSENT: hearing changes Cardiovascular: ABSENT: chest pain, dyspnea on exertion, edema, orthropnea, palpitations Respiratory: ABSENT: cough, hemoptysis Gastrointestinal: ABSENT: abdominal pain, constipation, diarrhea, hematemesis, hematochezia, nausea, vomiting Genitourinary: ABSENT: dysuria, hematuria Musculoskeletal: ABSENT: joint swelling Integumentary: ABSENT: rash, wounds Neurological: ABSENT: abnormal gait, abnormal speech, confusion, dizziness, focal weakness, syncope Psychiatric: ABSENT: anxiety, depression, homidical ideation, suicidal ideation Endocrine: ABSENT: cold intolerance, heat intolerance, polydipsia, polyuria Hematologic/Lymphatic: ABSENT: easy bleeding, easy bruising Physical Exam Vital Signs: Temp Pulse Resp BP Pulse Ox 99.9 F 78 21 H 102/56 L 94 06/27/19 07:48 06/27/19 07:48 06/27/19 10:00 06/27/19 09:57 06/27/19 10:00 Intake & Output 06/26/19 06/27/19 06/28/19 06:59 06:59 06:59 Weight 88.4 kg General appearance: PRESENT: no acute distress, well-developed, well-nourished Head exam: PRESENT: atraumatic, normocephalic Eye exam: PRESENT: conjunctiva pink, EOMI, PERRLA. ABSENT: scleral icterus Ear exam: PRESENT: normal external ear exam Mouth exam: PRESENT: moist, tongue midline Neck exam: ABSENT: carotid bruit, JVD, lymphadenopathy, thyromegaly Respiratory exam: PRESENT: clear to auscultation drew. ABSENT: rales, rhonchi, wheezes Cardiovascular exam: PRESENT: bradycardia, irregular rhythm. ABSENT: diastolic murmur, rubs, systolic murmur Pulses: PRESENT: normal dorsalis pedis pul Vascular exam: PRESENT: normal capillary refill GI/Abdominal exam: PRESENT: normal bowel sounds, soft. ABSENT: distended, guarding, mass, organolmegaly, rebound, tenderness Rectal exam: PRESENT: deferred Extremities exam: PRESENT: full ROM, +1 edema, other - Left hip decubitus ulcer. ABSENT: calf tenderness, clubbing, pedal edema Neurological exam: PRESENT: alert, awake, other - Patient answering questions appropriately at this time. ABSENT: motor sensory deficit Psychiatric exam: PRESENT: appropriate affect, normal mood. ABSENT: homicidal ideation, suicidal ideation Skin exam: PRESENT: dry, intact, warm, other - Leaking wound on the front of the right ackerman just below her patella. ABSENT: cyanosis, rash Results Laboratory Results: 06/27/19 07:32 06/27/19 07:32 06/27/19 06/27/19 06/27/19 07:32 07:32 07:32 WBC 14.5 H RBC 3.20 L Hgb 9.7 L Hct 28.9 L MCV 90 MCH 30.3 MCHC 33.6 RDW 15.6 H Plt Count 217 Seg Neutrophils % 83.6 H VBG pH 7.45 H VBG pCO2 38.6 VBG HCO3 26.5 VBG Base Excess 2.4 Sodium 132.8 L Potassium 3.9 Chloride 98 Carbon Dioxide 27 Anion Gap 8 BUN 19 Creatinine 0.66 Est GFR ( Amer) > 60 Glucose 124 H Lactic Acid Calcium 8.4 Total Bilirubin 0.7 AST 13 L Alkaline Phosphatase 82 Total Protein 5.1 L Albumin 2.4 L Urine Color Urine Appearance Urine pH Ur Specific [place] Urine Protein Urine Glucose (UA) Urine Ketones Urine Blood Urine Nitrite Ur Leukocyte Esterase Urine WBC (Auto) Urine RBC (Auto) 06/27/19 06/27/19 07:32 08:10 WBC RBC Hgb Hct MCV MCH MCHC RDW Plt Count Seg Neutrophils % VBG pH VBG pCO2 VBG HCO3 VBG Base Excess Sodium Potassium Chloride Carbon Dioxide Anion Gap BUN Creatinine Est GFR ( Amer) Glucose Lactic Acid 0.7 Calcium Total Bilirubin AST Alkaline Phosphatase Total Protein Albumin Urine Color MELINA Urine Appearance CLOUDY Urine pH 7.0 Ur Specific [place] 1.023 Urine Protein 100 H Urine Glucose (UA) NEGATIVE Urine Ketones NEGATIVE Urine Blood SMALL H Urine Nitrite NEGATIVE Ur Leukocyte Esterase LARGE H Urine WBC (Auto) 53 Urine RBC (Auto) 2 06/27/19 07:32 Troponin I < 0.012 Impressions: Chest X-Ray 06/27/19 07:45 IMPRESSION: Bibasilar airspace disease atelectasis versus pneumonia. Densities over the right upper lobe could be upper lobe airspace disease or healed rib fractures Assessment and Plan - Diagnosis (1) SIRS (systemic inflammatory response syndrome) Is this a current diagnosis for this admission?: Yes Plan: 06/27/2019-at this time I do not believe patient is septic. Patient has a history of hypertension. Patient's blood pressure 95 systolic. Patient also has a defibrillation running in the high 50s low 60s. Patient is getting IV fluids, antibiotics. Awaiting culture offending organism. Chest x-ray shows bilateral lower lobe density suggestive of pneumonia (2) Healthcare-associated pneumonia Is this a current diagnosis for this admission?: Yes Plan: 06/27/2019-as patient is a resident at [facility] I will place patient on Vanco Zosyn per pharmacy dosing. Will await culture offending organism. (3) Fever Qualifiers: Fever type: unspecified Qualified Code(s): R50.9 - Fever, unspecified Is this a current diagnosis for this admission?: Yes Plan: 06/27/2019-Tylenol PRN (4) Hyperglycemia Is this a current diagnosis for this admission?: Yes Plan: 06/27/2019-A1c, carbohydrate controlled diet with sliding scale insulin before meals and at bedtime. (5) Atrial fibrillation Is this a current diagnosis for this admission?: Yes Plan: 06/27/2019-continue Eliquis. Will start other home medications once medication reconciliation has been complete - Time Time Spent with patient: 35 or more minutes - Inpatient Certification Based on my medical assessment, after consideration of the patient's comorbidities, presenting symptoms, or acuity I expect that the services needed warrant INPATIENT care.: Yes I certify that my determination is in accordance with my understanding of Medicare's requirements for reasonable and necessary INPATIENT services [42 CFR 412.3e].: Yes Medical Necessity: Need for IV Antibiotics
[2019-06-27] MEDS ORDERED: MAG HYDROX/AL HYDROX/SIMETH SUSP 30 ML UDCUP PO PRN (10:15)
[2019-06-27] MEDS ORDERED: ACETAMINOPHEN 325 MG TABLET PO PRN (10:15)
[2019-06-27] MEDS ORDERED: ONDANSETRON HCL INJ/PF 4 MG/2 ML SDV IV PRN (10:15)
[2019-06-27] MEDS ORDERED: ALBUTEROL SULFATE 0.083% NEB 2.5 MG/3 ML AMPUL NEB PRN (10:15)
[2019-06-27] MEDS ORDERED: TEMAZEPAM 15 MG CAPSULE PO PRN (10:15)
[2019-06-27] MEDS: NORMAL SALINE 1000 ML 1,000 ML IV PRN ×2 (11:02→21:12)
--- NOTE | 2019-06-27 11:36 | EKG REPORT ---
SEVERITY:- ABNORMAL ECG - ATRIAL FIBRILLATION BORDERLINE T ABNORMALITIES, DIFFUSE LEADS : Confirmed by: Buffy Mclean MD 27-Jun-2019 11:36:05
[2019-06-27] MEDS: PIPERACILLIN SODIUM/TAZOBACTAM 3.375 GM in NORMAL SALINE 100 ML IV SCH ×2 (11:38→18:02)
[2019-06-27] MEDS ORDERED: PIPERACILLIN SODIUM/TAZOBACTAM 4.5 GM in NORMAL SALINE 100 ML IV SCH (12:00)
[2019-06-27] MEDS: VANCOMYCIN HCL 1,000 MG in DEXTROSE 5%-WATER 250 ML IV SCH ×2 (13:08→21:11)
[2019-06-27] MEDS ORDERED: HEPARIN SOD (PORCINE) 5,000 UNIT/ML 1 ML VIAL SUBCUT SCH (14:00)
[2019-06-27] MEDS ORDERED: LIDOCAINE 1% INJ-PF (10 MG/ML) 30 ML SDV ONE (16:27)
--- NOTE | 2019-06-27 17:55 | Operative Report ---
Operative Report DATE OF SURGERY: 06/27/19 PREOPERATIVE DIAGNOSIS: Deep soft tissue abscess right hip POSTOPERATIVE DIAGNOSIS: Same OPERATION: Excisional debridement of skin, subcutaneous tissue right hip abscess with debridement of subcutaneous tunneling, irrigation and packing SURGEON: SHIRLEY SHI ANESTHESIA: Local TISSUE REMOVED OR ALTERED: Infected skin and subcutaneous tissue COMPLICATIONS: None ESTIMATED BLOOD LOSS: 25 cc INTRAOPERATIVE FINDINGS: See below PROCEDURE: Consent was provided by the patient's family. The patient was placed in the left lateral cubitus position, right hip exposed. The right hip was prepped with Betadine. Surgical timeout conducted. Findings were significant for multiple punctate pus draining areas over the right hip. This covered an area of approximately 4 cm in diameter. Intervening skin was necrotic in areas. We anesthetized with 1% lidocaine with the right hip at the level of skin and subcutaneous tissue. We then excised the right hip infection with a #10 blade, removing a full-thickness 4 cm diameter plug of skin and subcutaneous tissue. This was sent for Gram stain culture and sensitivity. Underlying fat was debrided with index finger, and curette. The infection extended up underneath superior skin flap for several centimeters at least 6. Loculations were broken up with the index finger. Additional fatty necrotic pieces were evacuated from the wound bed. The wound was irrigated with saline, then packed open with 2 strips of Betadine soaked Kerlix dressing. Patient tolerated procedure. 4 x 4's and tape applied. Plan: 1. Continue empiric antibiotic therapy 2. We will perform dressing changes tomorrow 3. Follow-up on wound cultures.
[2019-06-27] MEDS: PANTOT AC/MIN OIL/PET HY-PHL OINT 50 GM TOP SCH (18:03)
[2019-06-28] MEDS: PIPERACILLIN SODIUM/TAZOBACTAM 3.375 GM in NORMAL SALINE 100 ML IV SCH ×4 (01:09→17:31)
[2019-06-28] MEDS: NORMAL SALINE 1000 ML 1,000 ML IV PRN ×2 (05:27→13:13)
[2019-06-28 06:00] LABS: HEMATOCRIT 27.3 % (36.0-47.0); HEMOGLOBIN 9.1 g/dL (12.0-15.5); MEAN CORPUSCULAR HEMOGLOBIN 30.1 pg (27.0-33.4); MEAN CORPUSCULAR HGB CONC 33.2 g/dL (32.0-36.0); MEAN CORPUSCULAR VOLUME 91 fl (80-97); PLATELET COUNT 206 10^3/uL (150-450); RED BLOOD COUNT 3.01 10^6/uL (3.72-5.28); RED CELL DISTRIBUTION WIDTH 15.5 % (11.5-14.0); WHITE BLOOD COUNT 13.7 10^3/uL (4.0-10.5)
[2019-06-28 06:22] LABS: ANION GAP 6 (5-19); BLOOD UREA NITROGEN 16 mg/dL (7-20); CALCIUM 8.3 mg/dL (8.4-10.2); CARBON DIOXIDE 27 mmol/L (22-30); CHLORIDE 101 mmol/L (98-107); GLUCOSE 113 mg/dL (75-110); PHOSPHORUS 3.2 mg/dL (2.5-4.5); POTASSIUM 3.7 mmol/L (3.6-5.0)
--- NOTE | 2019-06-28 08:52 | PDOC PROGRESS REPORT ---
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 ABSENT: rales, wheezes Cardiovascular exam: PRESENT: irregular rhythm. ABSENT: diastolic murmur, rubs, systolic murmur Pulses: PRESENT: +1 pedal pulses bilateral Vascular exam: PRESENT: normal capillary refill GI/Abdominal exam: PRESENT: normal bowel sounds, soft. ABSENT: distended, guarding, mass, organolmegaly, rebound, tenderness Neurological exam: PRESENT: awake. ABSENT: oriented to person, oriented to place, oriented to time, oriented to situation Psychiatric exam: PRESENT: appropriate affect, normal mood. ABSENT: homicidal ideation, suicidal ideation Skin exam: PRESENT: dry, intact, warm, other - Right hip dressing clean dry and intact. Patient underwent surgical I&D by Dr. Herrmann yesterday. Cultures are pending. Continue empiric antibiotics. ABSENT: cyanosis, rash Results Laboratory Results: 06/28/19 05:47 06/28/19 05:47 06/28/19 06/28/19 05:47 05:47 WBC 13.7 H RBC 3.01 L Hgb 9.1 L Hct 27.3 L MCV 91 MCH 30.1 MCHC 33.2 RDW 15.5 H Plt Count 206 Sodium 133.6 L Potassium 3.7 Chloride 101 Carbon Dioxide 27 Anion Gap 6 BUN 16 Creatinine 0.59 Est GFR ( Amer) > 60 Glucose 113 H Calcium 8.3 L Phosphorus 3.2 Magnesium 1.8 06/27/19 07:30 Blood Blood Culture (PCR) - Final Staphylococcus Species 06/27/19 07:32 Troponin I < 0.012 Impressions: Chest X-Ray 06/27/19 07:45 IMPRESSION: Bibasilar airspace disease atelectasis versus pneumonia. Densities over the right upper lobe could be upper lobe airspace disease or healed rib fractures Assessment and Plan - Diagnosis (1) SIRS (systemic inflammatory response syndrome) Is this a current diagnosis for this admission?: Yes Plan: 06/27/2019-at this time I do not believe patient is septic. Patient has a history of hypertension. Patient's blood pressure 95 systolic. Patient also has a defibrillation running in the high 50s low 60s. Patient is getting IV fluids, antibiotics. Awaiting culture offending organism. Chest x-ray shows bilateral lower lobe density suggestive of pneumonia 06/28/2019-improved. Patient remains on empiric antibiotics awaiting cultures. Patient is receiving IV fluids at this time I will decrease the rate patient will continue oral intake as well. (2) Healthcare-associated pneumonia Is this a current diagnosis for this admission?: Yes Plan: 06/27/2019-as patient is a resident at [facility] I will place patient on Vanco Zosyn per pharmacy dosing. Will await culture offending organism. 06/28/2019-patient remains on Vanco and Zosyn. Awaiting cultures patient is much more a wake this morning however she is pleasantly confused and not able to answer questions. Will follow (3) Fever Qualifiers: Fever type: unspecified Qualified Code(s): R50.9 - Fever, unspecified Is this a current diagnosis for this admission?: Yes Plan: 06/27/2019-Tylenol PRN 06/28/2019-stable follow (4) Hyperglycemia Is this a current diagnosis for this admission?: Yes Plan: 06/27/2019-A1c, carbohydrate controlled diet with sliding scale insulin before meals and at bedtime. [id number]. Patient's A1c within normal limits. Continue sliding scale insulin in the patient's acute phase of illness. (5) Atrial fibrillation Is this a current diagnosis for this admission?: Yes Plan: 06/27/2019-continue Eliquis. Will start other home medications once medication reconciliation has been complete 06/28/2019-stable continue current therapy (6) Unspecified open wound, right hip, initial encounter Is this a current diagnosis for this admission?: Yes Plan: 06/28/2019-patient presented from [facility] yesterday with a right hip wound that was being treated outpatient. Upon initial examination was found to have possible pus pocket. Surgery was consulted and she underwent a surgical I&D yesterday with approximately 4 cm area removed. Area was sent for cultures. We will continue patient on empiric antibiotics. - Time Time Spent with patient: 15-24 minutes - Inpatient Certification Based on my medical assessment, after consideration of the patient's comorbidities, presenting symptoms, or acuity I expect that the services needed warrant INPATIENT care.: Yes I certify that my determination is in accordance with my understanding of Medicare's requirements for reasonable and necessary INPATIENT services [42 CFR 412.3e].: Yes Medical Necessity: Need For IV Fluids, Need for IV Antibiotics
--- NOTE | 2019-06-28 09:21 | PDOC PROGRESS REPORT ---
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 Some drainage post debridement last p.m. from right hip Physical Exam Vital Signs: Temp Pulse Resp BP Pulse Ox 97.4 F 67 20 103/58 L 95 06/28/19 07:26 06/28/19 07:26 06/28/19 07:26 06/28/19 07:26 06/28/19 07:26 Intake & Output 06/27/19 06/28/19 06/29/19 06:59 06:59 06:59 Intake Total 5792 Output Total 50 Balance 5742 Weight 90.7 kg General appearance: PRESENT: other - No significant changes, patient is politely demented Extremities exam: PRESENT: other - Patient rolled in left lateral decubitus position. Betadine soaked dressing removed. Decreased erythema and edema around the debridement site. Packing removed. No foul smell or residual pus identified. Wound cavity which tracks cephalad irrigated with saline, and repacked with a slightly moistened 4 x 4 gauze. Results Laboratory Results: 06/28/19 05:47 06/28/19 05:47 06/28/19 06/28/19 05:47 05:47 WBC 13.7 H RBC 3.01 L Hgb 9.1 L Hct 27.3 L MCV 91 MCH 30.1 MCHC 33.2 RDW 15.5 H Plt Count 206 Sodium 133.6 L Potassium 3.7 Chloride 101 Carbon Dioxide 27 Anion Gap 6 BUN 16 Creatinine 0.59 Est GFR ( Amer) > 60 Glucose 113 H Calcium 8.3 L Phosphorus 3.2 Magnesium 1.8 06/27/19 07:30 Blood Blood Culture (PCR) - Final Staphylococcus Species 06/27/19 07:32 Troponin I < 0.012 Impressions: Chest X-Ray 06/27/19 07:45 IMPRESSION: Bibasilar airspace disease atelectasis versus pneumonia. Densities over the right upper lobe could be upper lobe airspace disease or healed rib fractures Assessment & Plan - Diagnosis (1) Soft tissue infection Is this a current diagnosis for this admission?: Yes Plan: Impression: Soft tissue infection right hip status post bedside debridement 18 hours ago, clinically improved with duction and soft tissue erythema, induration and drainage. Persisting leukocytosis. On empiric antibiotic therapy Recommendations: 1. No indication for further surgical debridement 2. We will start dressing changes twice daily; orders written and reviewed with nursing staff 3. Follow-up on wound cultures, sensitivity. (2) Sepsis Qualifiers: Sepsis type: sepsis due to unspecified organism Sepsis acute organ dysfunction status: without acute organ dysfunction Qualified Code(s): A41.9 - Sepsis, unspecified organism Is this a current diagnosis for this admission?: Yes - Time Time Spent with patient: 15-24 minutes
[2019-06-28] MEDS: VANCOMYCIN HCL 1,000 MG in DEXTROSE 5%-WATER 250 ML IV SCH ×2 (09:57→21:56)
[2019-06-28] MEDS: PANTOT AC/MIN OIL/PET HY-PHL OINT 50 GM TOP SCH ×2 (09:59→17:31)
[2019-06-28] MEDS: OXYCODONE-ACETAMINOPHEN 5-325 MG TABLET PO PRN (14:16)
[2019-06-29] MEDS: PIPERACILLIN SODIUM/TAZOBACTAM 3.375 GM in NORMAL SALINE 100 ML IV SCH ×3 (00:42→13:15)
[2019-06-29] MEDS: OXYCODONE-ACETAMINOPHEN 5-325 MG TABLET PO PRN ×3 (01:56→20:56)
[2019-06-29] MEDS: NORMAL SALINE 1000 ML 1,000 ML IV PRN ×2 (01:57→15:37)
[2019-06-29 06:08] LABS: HEMATOCRIT 26.2 % (36.0-47.0); HEMOGLOBIN 8.6 g/dL (12.0-15.5); MEAN CORPUSCULAR VOLUME 91 fl (80-97); PLATELET COUNT 219 10^3/uL (150-450); RED BLOOD COUNT 2.88 10^6/uL (3.72-5.28); RED CELL DISTRIBUTION WIDTH 15.6 % (11.5-14.0); WHITE BLOOD COUNT 15.1 10^3/uL (4.0-10.5)
[2019-06-29 06:28] LABS: ANION GAP 8 (5-19); BLOOD UREA NITROGEN 13 mg/dL (7-20); CALCIUM 8.3 mg/dL (8.4-10.2); CARBON DIOXIDE 24 mmol/L (22-30); CHLORIDE 105 mmol/L (98-107); GLUCOSE 112 mg/dL (75-110); POTASSIUM 3.6 mmol/L (3.6-5.0)
[2019-06-29] MEDS: VANCOMYCIN HCL 1,000 MG in DEXTROSE 5%-WATER 250 ML IV SCH ×2 (09:55→21:05)
[2019-06-29] MEDS: PANTOT AC/MIN OIL/PET HY-PHL OINT 50 GM TOP SCH ×2 (09:56→17:26)
--- NOTE | 2019-06-29 10:36 | PDOC PROGRESS REPORT ---
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 ABSENT: rales, rhonchi, wheezes Cardiovascular exam: PRESENT: irregular rhythm. ABSENT: diastolic murmur, rubs, systolic murmur Pulses: PRESENT: +1 pedal pulses bilateral Vascular exam: PRESENT: normal capillary refill GI/Abdominal exam: PRESENT: normal bowel sounds, soft. ABSENT: distended, guar ding, mass, organolmegaly, rebound, tenderness Extremities exam: PRESENT: full ROM. ABSENT: calf tenderness, clubbing, pedal edema Neurological exam: PRESENT: awake Psychiatric exam: PRESENT: appropriate affect, normal mood. ABSENT: homicidal ideation, suicidal ideation Skin exam: PRESENT: other - Right hip wound dressing in tact Results Laboratory Results: 06/29/19 05:22 06/29/19 05:22 06/29/19 06/29/19 05:22 05:22 WBC 15.1 H RBC 2.88 L Hgb 8.6 L Hct 26.2 L MCV 91 MCH 30.0 MCHC 33.0 RDW 15.6 H Plt Count 219 Sodium 137.0 Potassium 3.6 Chloride 105 Carbon Dioxide 24 Anion Gap 8 BUN 13 Creatinine 0.62 Est GFR ( Amer) > 60 Glucose 112 H Calcium 8.3 L 06/27/19 16:35 Hip - Right Gram Stain - Final 06/27/19 16:35 Hip - Right Wound Culture - Final Mrsa (Meth Resis Staph Aureus) No Anaerobic Organisms 06/27/19 08:10 Catheterized Urine Urine Culture - Final Proteus Mirabilis 06/27/19 07:30 Blood Blood Culture (PCR) - Final Staphylococcus Species 06/27/19 07:32 Troponin I < 0.012 Impressions: Chest X-Ray 06/27/19 07:45 IMPRESSION: Bibasilar airspace disease atelectasis versus pneumonia. Densities over the right upper lobe could be upper lobe airspace disease or healed rib fractures Assessment and Plan - Diagnosis (1) SIRS (systemic inflammatory response syndrome) Is this a current diagnosis for this admission?: Yes Plan: 06/27/2019-at this time I do not believe patient is septic. Patient has a history of hypertension. Patient's blood pressure 95 systolic. Patient also has a defibrillation running in the high 50s low 60s. Patient is getting IV fluids, antibiotics. Awaiting culture offending organism. Chest x-ray shows bilateral lower lobe density suggestive of pneumonia 06/28/2019-improved. Patient remains on empiric antibiotics awaiting cultures. Patient is receiving IV fluids at this time I will decrease the rate patient wi ll continue oral intake as well. 06/29/2019-improved. Cultures returned showing gram-positive cocci MRSA positive in both blood cultures as well as wound culture. Patient continues on vancomycin. Patient's urine culture shows Proteus Mirabella's susceptible to Rocephin. I will change her buttocks to reflect and Rocephin. (2) Healthcare-associated pneumonia Is this a current diagnosis for this admission?: Yes Plan: 06/27/2019-as patient is a resident at [facility] I will place patient on Vanco Zosyn per pharmacy dosing. Will await culture offending organism. 06/28/2019-patient remains on Vanco and Zosyn. Awaiting cultures patient is much more a wake this morning however she is pleasantly confused and not able to answer questions. Will follow 06/29/2019-continue vancomycin we will change Zosyn to Rocephin. (3) Fever Qualifiers: Fever type: unspecified Qualified Code(s): R50.9 - Fever, unspecified Is this a current diagnosis for this admission?: Yes Plan: 06/27/2019-Tylenol PRN 06/28/2019-stable follow 06/29/2019-stable continue to follow (4) Hyperglycemia Is this a current diagnosis for this admission?: Yes Plan: 06/27/2019-A1c, carbohydrate controlled diet with sliding scale insulin before meals and at bedtime. 06/[id number]. Patient's A1c within normal limits. Continue sliding scale insulin in the patient's acute phase of illness. 06/29/2019-stable (5) Atrial fibrillation Is this a current diagnosis for this admission?: Yes Plan: 06/27/2019-continue Eliquis. Will start other home medications once medication reconciliation has been complete 06/28/2019-stable continue current therapy 06/29/2019-stable (6) Unspecified open wound, right hip, initial encounter Is this a current diagnosis for this admission?: Yes Plan: 06/28/2019-patient presented from [facility] yesterday with a right hip wound that was being treated outpatient. Upon initial examination was found to have possible pus pocket. Surgery was consulted and she underwent a surgical I&D yesterday with approximately 4 cm area removed. Area was sent for cultures. We will continue patient on empiric antibiotics. 06/29/2019-wound shows 4+ staph. We will continue patient on vancomycin. - Time Time Spent with patient: 15-24 minutes - Inpatient Certification Based on my medical assessment, after consideration of the patient's comorbidities, presenting symptoms, or acuity I expect that the services needed warrant INPATIENT care.: Yes I certify that my determination is in accordance with my understanding of Medicare's requirements for reasonable and necessary INPATIENT services [42 CFR 412.3e].: Yes Medical Necessity: Need For IV Fluids, Need for IV Antibiotics
[2019-06-29 10:39] LABS: VANCOMYCIN,TROUGH 17.5 ug/mL (5.0-20.0)
--- NOTE | 2019-06-29 11:48 | PDOC PROGRESS REPORT ---
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 Small amount of serosanguinous fluid drainage Results Laboratory Results: 06/29/19 05:22 06/29/19 05:22 06/29/19 06/29/19 05:22 05:22 WBC 15.1 H RBC 2.88 L Hgb 8.6 L Hct 26.2 L MCV 91 MCH 30.0 MCHC 33.0 RDW 15.6 H Plt Count 219 Sodium 137.0 Potassium 3.6 Chloride 105 Carbon Dioxide 24 Anion Gap 8 BUN 13 Creatinine 0.62 Est GFR ( Amer) > 60 Glucose 112 H Calcium 8.3 L 06/27/19 16:35 Hip - Right Gram Stain - Final 06/27/19 16:35 Hip - Right Wound Culture - Final Mrsa (Meth Resis Staph Aureus) No Anaerobic Organisms 06/27/19 08:10 Catheterized Urine Urine Culture - Final Proteus Mirabilis 06/27/19 07:30 Blood Blood Culture (PCR) - Final Staphylococcus Species 06/27/19 07:32 Troponin I < 0.012 Impressions: Chest X-Ray 06/27/19 07:45 IMPRESSION: Bibasilar airspace disease atelectasis versus pneumonia. Densities over the right upper lobe could be upper lobe airspace disease or healed rib fractures Assessment & Plan - Diagnosis (1) Abscess right hip Is this a current diagnosis for this admission?: Yes (2) Altered mental status Qualifiers: Altered mental status type: unspecified Qualified Code(s): R41.82 - Altered mental status, unspecified Is this a current diagnosis for this admission?: Yes (3) SIRS (systemic inflammatory response syndrome) Is this a current diagnosis for this admission?: Yes - Inpatient Certification Medical Necessity: Need for IV Antibiotics - Plan Summary Plan Summary: POD #2 I&D Rt Hip abscess D/W Hospitalist. Continue IV Vanco and Zosyn for MRSA and Proteus in Urine Continue wet to dry dressings q 12 hrs
[2019-06-29] MEDS ORDERED: CEFTRIAXONE 1 GM/D5W RTU 1 GM/50 ML RTUPB IV SCH (15:00)
[2019-06-30 06:15] LABS: HEMATOCRIT 24.5 % (36.0-47.0); MEAN CORPUSCULAR HEMOGLOBIN 29.9 pg (27.0-33.4); MEAN CORPUSCULAR HGB CONC 32.8 g/dL (32.0-36.0); MEAN CORPUSCULAR VOLUME 91 fl (80-97); PLATELET COUNT 246 10^3/uL (150-450); RED BLOOD COUNT 2.68 10^6/uL (3.72-5.28); RED CELL DISTRIBUTION WIDTH 15.3 % (11.5-14.0); WHITE BLOOD COUNT 14.2 10^3/uL (4.0-10.5)
[2019-06-30 06:37] LABS: ANION GAP 6 (5-19); BLOOD UREA NITROGEN 11 mg/dL (7-20); CARBON DIOXIDE 25 mmol/L (22-30); CHLORIDE 105 mmol/L (98-107); GLUCOSE 105 mg/dL (75-110); POTASSIUM 3.6 mmol/L (3.6-5.0)
[2019-06-30] MEDS: VANCOMYCIN HCL 1,000 MG in DEXTROSE 5%-WATER 250 ML IV SCH ×2 (11:04→22:00)
[2019-06-30] MEDS: PANTOT AC/MIN OIL/PET HY-PHL OINT 50 GM TOP SCH ×2 (11:05→18:39)
[2019-06-30] MEDS ORDERED: CEFTRIAXONE 1 GM/D5W RTU 1 GM/50 ML RTUPB IV SCH (15:00)
--- NOTE | 2019-06-30 16:43 | PDOC PROGRESS REPORT ---
Subjective Progress Note for:: 06/30/19 Subjective:: The patient is an 83-year-old female with past medical history of atrial fibrillation, hypertension, advanced dementia who is a resident of [facility] and admitted on 06/27/2019 for healthcare associated pneumonia, urinary tract infection, and abscess to the right hip. Patient was seen on morning rounds. She was awake and oriented to self. She was conversationally appropriate, but otherwise disoriented. She denies fever, chills, chest pain, palpitations, dyspnea, abdominal pain, nausea and vomiting. She has no questions or concerns at this time. No concerns per nursing. 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 ABSENT: scleral icterus Ear exam: PRESENT: normal external ear exam Mouth exam: PRESENT: moist, tongue midline Respiratory exam: PRESENT: clear to auscultation drew, symmetrical, unlabored. ABSENT: rales, rhonchi, wheezes Cardiovascular exam: PRESENT: irregular rhythm, +S1, +S2, systolic murmur. ABSENT: diastolic murmur, rubs Pulses: PRESENT: normal dorsalis pedis pul Vascular exam: PRESENT: normal capillary refill GI/Abdominal exam: PRESENT: normal bowel sounds, soft. ABSENT: distended, guarding, mass, organolmegaly, rebound, tenderness Rectal exam: PRESENT: deferred Extremities exam: ABSENT: calf tenderness, clubbing, pedal edema Neurological exam: PRESENT: alert, awake, oriented to person, CN II-XII grossly intact, other - Pleasantly confused. ABSENT: oriented to place, oriented to time, oriented to situation, motor sensory deficit Psychiatric exam: PRESENT: appropriate affect, normal mood. ABSENT: homicidal ideation, suicidal ideation Skin exam: PRESENT: dry, warm. ABSENT: cyanosis, intact - Dressing intact.Right hip wound s/p I&D by surgery., rash Results Laboratory Results: 06/30/19 05:39 06/30/19 05:39 06/30/19 06/30/19 05:39 05:39 WBC 14.2 H RBC 2.68 L Hgb 8.0 L Hct 24.5 L MCV 91 MCH 29.9 MCHC 32.8 RDW 15.3 H Plt Count 246 Sodium 136.4 L Potassium 3.6 Chloride 105 Carbon Dioxide 25 Anion Gap 6 BUN 11 Creatinine 0.60 Est GFR ( Amer) > 60 Glucose 105 Calcium 8.0 L 06/27/19 07:30 Blood Blood Culture (PCR) - Final Staphylococcus Species 06/27/19 07:32 Troponin I < 0.012 Impressions: Chest X-Ray 06/27/19 07:45 IMPRESSION: Bibasilar airspace disease atelectasis versus pneumonia. Densities over the right upper lobe could be upper lobe airspace disease or healed rib fractures Assessment and Plan - Diagnosis (1) Bacteremia Is this a current diagnosis for this admission?: Yes Plan: Blood cultures (06/27/2019) grew gram-positive cocci in clusters (2/4 bottles; one each set). Likely MRSA given the patient's wound culture results. Repeat blood cultures (06/29/2019) are negative at 24 hours. Continue IV vancomycin. Possible PICC line on 07/03/2019 if cultures remain negative. Patient may require 4 weeks IV antibiotics if MRSA r/t right thigh wound. (2) Abscess right hip Is this a current diagnosis for this admission?: Yes Plan: POD #3 I&D right hip abscess by surgical team. Wound culture positive for MRSA. We will continue IV vancomycin. Continue wound care per surgery's recommendations; currently wet-to-dry dressings every 12 hours. (3) Atrial fibrillation Is this a current diagnosis for this admission?: Yes Plan: Rate controlled without medication Continue home dose Eliquis. (4) Healthcare-associated pneumonia Is this a current diagnosis for this admission?: Yes Plan: Improved; patient is now maintaining oxygen saturations while at room air. Blood cultures (06/27/2019) 1 bottle each set growing gram-positive cocci in clu sters. Follow-up blood cultures are negative. Unfortunately, sputum cultures were not obtained. Leukocytosis is overall stable; 14.2. Patient has been afebrile greater than 48 hours. Patient was empirically placed on IV Vancomycin and Zosyn at admission. IV Zosyn discontinued on 06/29. Started on IV Rocephin; Day #1. Continue supplemental oxygen as needed to maintain oxygen saturations. As needed nebulizer treatments. Encourage pulmonary toilet is able to participate. (5) UTI (urinary tract infection) Qualifiers: Hematuria presence: with hematuria Is this a current diagnosis for this admission?: Yes Plan: Urinalysis revealed urinary tract infection. Urine culture shows Proteus Mirabella's with greater than 100,000 colonies. Penicillin sensitive. Patient has received 3 days IV vancomycin, 2 days IV Zosyn and now on IV Rocephin. Has received a total of 3 days of appropriate antibiotic therapy. Will consider discontinuing Rocephin if patient remains afebrile and WBC stable. (6) SIRS (systemic inflammatory response syndrome) Is this a current diagnosis for this admission?: Yes Plan: Resolved. Multifactorial secondary to healthcare associated pneumonia, urinary tract infection, right hip abscess, bacteremia. Vital signs stable. Lactic acid normal. Has returned to baseline mental status. Management as above. (7) Fever Qualifiers: Fever type: unspecified Qualified Code(s): R50.9 - Fever, unspecified Is this a current diagnosis for this admission?: Yes Plan: Resolved. - Time Time Spent with patient: 25-34 minutes Medications reviewed and adjusted accordingly: Yes Anticipated discharge: SNF - Long-term care resident at [facility] Within: within 72 hours - Pending blood culture results.
[2019-06-30] MEDS: APIXABAN 2.5 MG TABLET PO SCH (18:38)
--- NOTE | 2019-06-30 19:00 | Operative Report ---
Operative Report DATE OF SURGERY: 06/30/19 PREOPERATIVE DIAGNOSIS: abscess right lower lateral thigh POSTOPERATIVE DIAGNOSIS: Same OPERATION: Incision and drainage of abscess to right lateral thigh SURGEON: JUVENAL GASTELUM ANESTHESIA: Other - The patient has a fluctuant area with cyst small opening to begin with. TISSUE REMOVED OR ALTERED: Pus COMPLICATIONS: None ESTIMATED BLOOD LOSS: 2cc QUANTITATIVE BLOOD LOSS: 2 INTRAOPERATIVE FINDINGS: Is about 5 cc of pus removed PROCEDURE: Patient has some stiffness of the lower extremities and with the help of the nurses patient was turned to the left side in a decubitus position. The area on the right lateral thigh already has opening on the distal part of the abscess. The opening was then probed with the use of scissors and the opening enlarged. There were lateral pus came out when squeezed to at least 45 cc. The opening was made about 1cm. She was able to tolerate it because most of the areas already necrotic. A dry dressing was then placed over the abscess opening. Patient tolerated procedure well.
[2019-07-01] MEDS: LEVOTHYROXINE SODIUM 0.025 MG TABLET PO SCH (05:27)
[2019-07-01] MEDS: LEVOTHYROXINE SODIUM 0.1 MG TABLET PO SCH (05:27)
[2019-07-01] MEDS ORDERED: (PENDING PHARMACY ID) (Levothyroxine Sodium [Synthroid] 125 MCG) PO SCH (06:00)
[2019-07-01 08:38] LABS: HEMATOCRIT 24.6 % (36.0-47.0); MEAN CORPUSCULAR HEMOGLOBIN 29.9 pg (27.0-33.4); MEAN CORPUSCULAR HGB CONC 32.8 g/dL (32.0-36.0); MEAN CORPUSCULAR VOLUME 91 fl (80-97); PLATELET COUNT 298 10^3/uL (150-450); RED BLOOD COUNT 2.69 10^6/uL (3.72-5.28); RED CELL DISTRIBUTION WIDTH 15.4 % (11.5-14.0); WHITE BLOOD COUNT 11.6 10^3/uL (4.0-10.5)
[2019-07-01 08:54] LABS: ANION GAP 6 (5-19); BLOOD UREA NITROGEN 9 mg/dL (7-20); CALCIUM 8.1 mg/dL (8.4-10.2); CARBON DIOXIDE 27 mmol/L (22-30); CHLORIDE 103 mmol/L (98-107); GLUCOSE 101 mg/dL (75-110); POTASSIUM 3.5 mmol/L (3.6-5.0)
[2019-07-01] MEDS ORDERED: (PENDING PHARMACY ID) (Multivit-Min/Iron/Folic/Lutein [Centrum Silver Women Tablet] 1 EACH PO SCH (10:00)
[2019-07-01] MEDS: PANTOT AC/MIN OIL/PET HY-PHL OINT 50 GM TOP SCH ×2 (10:11→18:10)
[2019-07-01] MEDS: APIXABAN 2.5 MG TABLET PO SCH ×2 (10:11→18:10)
[2019-07-01] MEDS: MULTIVITAMIN TABLET PO SCH (10:11)
[2019-07-01] MEDS: VANCOMYCIN HCL 1,000 MG in DEXTROSE 5%-WATER 250 ML IV SCH (10:11)
[2019-07-01] MEDS: SULFAMETHOXAZOLE/TRIMETHOPRIM 800-160 MG TABLET PO SCH ×2 (11:00→21:48)
[2019-07-01] MEDS ORDERED: FUROSEMIDE 40 MG TABLET PO ONE ×2 (11:30→16:00)
--- NOTE | 2019-07-01 20:23 | PDOC PROGRESS REPORT ---
Subjective Progress Note for:: 07/01/19 Subjective:: The patient is an 83-year-old female with past medical history of atrial fibrillation, hypertension, advanced dementia who is a resident of [facility] and admitted on 06/27/2019 for healthcare associated pneumonia, urinary tract infection, and abscess to the right hip. Patient was seen on morning rounds. She was was sleeping soundly but woke easily when I set her name. She answers yes to most questions. Unable to fully assess orientation today. She does tell me that she is feeling well, not having difficulty breathing, and not in any pain. ROS is otherwise limited secondary to mental status. No concerns per nursing. 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 ABSENT: scleral icterus Ear exam: PRESENT: normal external ear exam Mouth exam: PRESENT: moist, tongue midline Teeth exam: PRESENT: poor dentation Respiratory exam: PRESENT: clear to auscultation drew, symmetrical, unlabored. ABSENT: rales, rhonchi, wheezes Cardiovascular exam: PRESENT: irregular rhythm, +S1, +S2. ABSENT: diastolic murmur, rubs, systolic murmur Pulses: PRESENT: normal dorsalis pedis pul Vascular exam: PRESENT: normal capillary refill GI/Abdominal exam: PRESENT: normal bowel sounds, soft. ABSENT: distended, guarding, mass, organolmegaly, rebound, tenderness Rectal exam: PRESENT: deferred Extremities exam: PRESENT: pedal edema - Trace bilaterally. ABSENT: calf tenderness, clubbing Neurological exam: PRESENT: CN II-XII grossly intact, other - Arousable, oriented to self. ABSENT: motor sensory deficit Psychiatric exam: PRESENT: appropriate affect, normal mood. ABSENT: homicidal ideation, suicidal ideation Skin exam: PRESENT: dry, warm. ABSENT: cyanosis, intact - Right hip wound s/p I&D by surgery. Bedside I&D of abscess to posterior right knee and anterior right knee yesterday., rash Results Laboratory Results: 07/01/19 08:13 07/01/19 08:13 07/01/19 07/01/19 08:13 08:13 WBC 11.6 H RBC 2.69 L Hgb 8.0 L Hct 24.6 L MCV 91 MCH 29.9 MCHC 32.8 RDW 15.4 H Plt Count 298 Sodium 136.4 L Potassium 3.5 L Chloride 103 Carbon Dioxide 27 Anion Gap 6 BUN 9 Creatinine 0.46 L Est GFR ( Amer) > 60 Glucose 101 Calcium 8.1 L 06/27/19 07:32 Blood Blood Culture - Final Staphylococcus Epidermidis 06/27/19 07:30 Blood Blood Culture (PCR) - Final Staphylococcus Species 06/27/19 07:30 Blood Blood Culture - Final Staphylococcus Epidermidis Staphylococcus Hominis 06/27/19 07:32 Troponin I < 0.012 Impressions: Chest X-Ray 06/27/19 07:45 IMPRESSION: Bibasilar airspace disease atelectasis versus pneumonia. Densities over the right upper lobe could be upper lobe airspace disease or healed rib fractures Assessment and Plan - Diagnosis (1) Bacteremia Is this a current diagnosis for this admission?: Yes Plan: Blood cultures (06/27/2019) staph epi and staph hominis (2/4 bottles; one each set); currently both sensitive to vancomycin and Bactrim. Repeat blood cultures (06/29/2019) are negative at 48 hours. Have discontinued IV vancomycin. Start p.o. Bactrim. She will be adequately treated for her bacteremia at conclusion of treatment for her treatment for wound infection. (2) Abscess right hip Is this a current diagnosis for this admission?: Yes Plan: POD #4 I&D right hip abscess by surgical team. Wound culture positive for MRSA. Transition to oral Bactrim today. Continue wound care per surgery's recommendations; currently wet-to-dry dressings every 12 hours. (3) Atrial fibrillation Is this a current diagnosis for this admission?: Yes Plan: Rate controlled without medication Continue home dose Eliquis. (4) Healthcare-associated pneumonia Is this a current diagnosis for this admission?: Yes Plan: Resolved; patient is now maintaining oxygen saturations while at room air, her lung sounds Blood cultures (06/27/2019) 1 bottle each set staph epi and staph hominis Follow-up blood cultures are negative. Unfortunately, sputum cultures were not obtained. Leukocytosis is overall stable; 14.2. Patient has been afebrile greater than 48 hours. The patient was empirically placed on IV vancomycin and Zosyn; then transition to vancomycin and Rocephin following initial culture results. Fortunately, all cultures are demonstrating sensitivity to Bactrim Continue supplemental oxygen as needed to maintain oxygen saturations. As needed nebulizer treatments. Encourage pulmonary toilet is able to participate. (5) UTI (urinary tract infection) Qualifiers: Hematuria presence: with hematuria Is this a current diagnosis for this admission?: Yes Plan: Urinalysis revealed urinary tract infection. Urine culture shows Proteus Mirabella's with greater than 100,000 colonies. Penicillin sensitive. Patient has received 3 days IV vancomycin, 2 days IV Zosyn and now on IV Rocephin. Has received a total of 3 days of appropriate antibiotic therapy. Completed course of therapy. (6) SIRS (systemic inflammatory response syndrome) Is this a current diagnosis for this admission?: Yes Plan: Resolved. Multifactorial secondary to healthcare associated pneumonia, urinary tract infection, right hip abscess, bacteremia. Vital signs stable. Lactic acid normal. Has returned to baseline mental status. Management as above. (7) Fever Qualifiers: Fever type: unspecified Qualified Code(s): R50.9 - Fever, unspecified Is this a current diagnosis for this admission?: Yes Plan: Resolved. - Time Time Spent with patient: 25-34 minutes Medications reviewed and adjusted accordingly: Yes Anticipated discharge: SNF Within: within 24 hours - If tolerates transition to p.o. antibiotics well (does not develop fever, leukocytosis remained stable)
[2019-07-02] MEDS: LEVOTHYROXINE SODIUM 0.1 MG TABLET PO SCH (05:39)
[2019-07-02] MEDS: LEVOTHYROXINE SODIUM 0.025 MG TABLET PO SCH (05:39)
[2019-07-02 06:40] LABS: HEMATOCRIT 25.9 % (36.0-47.0); HEMOGLOBIN 8.6 g/dL (12.0-15.5); MEAN CORPUSCULAR HEMOGLOBIN 30.1 pg (27.0-33.4); MEAN CORPUSCULAR HGB CONC 33.4 g/dL (32.0-36.0); MEAN CORPUSCULAR VOLUME 90 fl (80-97); PLATELET COUNT 369 10^3/uL (150-450); RED BLOOD COUNT 2.87 10^6/uL (3.72-5.28); RED CELL DISTRIBUTION WIDTH 15.4 % (11.5-14.0); WHITE BLOOD COUNT 11.1 10^3/uL (4.0-10.5)
[2019-07-02] MEDS ORDERED: FUROSEMIDE 40 MG TABLET PO SCH (08:00)
[2019-07-02] MEDS: SULFAMETHOXAZOLE/TRIMETHOPRIM 800-160 MG TABLET PO SCH (10:29)
[2019-07-02] MEDS: MULTIVITAMIN TABLET PO SCH (10:29)
[2019-07-02] MEDS: APIXABAN 2.5 MG TABLET PO SCH (10:30)
[2019-07-02] MEDS: PANTOT AC/MIN OIL/PET HY-PHL OINT 50 GM TOP SCH (11:06)
[2019-07-02] MEDS ORDERED: FUROSEMIDE 40 MG TABLET PO ONE (13:00)
--- NOTE | 2019-07-02 13:04 | PDOC TRANSFER SUMMARY ---
Impression - Admit/DC Date/PCP Admission Date/Primary Care Provider: 06/27/19 10:38 Discharge Date: 07/02/19 - Discharge Diagnosis (1) Bacteremia Is this a current diagnosis for this admission?: Yes (2) Abscess right hip Is this a current diagnosis for this admission?: Yes (3) Atrial fibrillation Is this a current diagnosis for this admission?: Yes (4) Healthcare-associated pneumonia Is this a current diagnosis for this admission?: Yes (5) UTI (urinary tract infection) Is this a current diagnosis for this admission?: Yes (6) SIRS (systemic inflammatory response syndrome) Is this a current diagnosis for this admission?: Yes (7) Fever Is this a current diagnosis for this admission?: Yes - Additional Information Resuscitation Status: Do Not Resuscitate Discharge Diet: Cardiac Discharge Activity: Activity As Tolerated, Balance Activity w/Rest, Supervised Activity Referrals: [facility] [Outside] Prescriptions: Sulfamethoxazole/Trimethoprim [Septra-Ds 800-160 mg Tablet] 1 tab PO Q12 #20 tablet Home Medications: Amino Acids/Protein Hydrolys [Pro-Stat [facility] Liquid Packet] 1 pkt PO BID 06/27/19 Apixaban [Eliquis 2.5 mg Tablet] 2.5 mg PO BID 06/27/19 Baclofen [Baclofen 10 mg Tablet] 10 mg PO Q8HP PRN 06/27/19 Carboxymethylcellulos/Glycerin [Refresh Optive Eye Drops] 1 drop OU BID 06/27/19 Ceramides 1,3,6-11 [Cerave Cream] 1 applic TP DAILYP PRN 06/27/19 Cholecalciferol (Vitamin D3) [Vitamin D3 1000 Unit Tablet] 2,000 unit PO DAILY 06/27/19 Citalopram Hydrobromide [Citalopram HBr] 10 mg PO DAILY 06/27/19 Furosemide [Lasix 40 mg Tablet] 40 mg PO QAM 06/27/19 Levothyroxine Sodium [Synthroid] 125 mcg PO Q6AM 06/27/19 Multivit-Min/Iron/Folic/Lutein [Centrum Silver Women Tablet] 1 each PO DAILY 06/27/19 Potassium Chloride [Klor-Con 10 Meq Capsule ER] 20 meq PO DAILY 06/27/19 Tramadol HCl [Ultram 50 mg Tablet] 50 mg PO Q8HP PRN 06/27/19 Acetaminophen [Tylenol 325 mg Tablet] 650 mg PO Q4HP PRN tablet 07/02/19 Sulfamethoxazole/Trimethoprim [Septra-Ds 800-160 mg Tablet] 1 tab PO Q12 #20 tablet 07/02/19 History of Present Illiness History of Present Illness: Per H&P by Harrison Mejia: ZEB MEJIA is a 83 year old female from [facility] who presents to the ER for altered mental status and fever. Patient temperature 101.5 at usp Tylenol was given around 230 this morning. She is being currently being treated for a right hip decubitus ulcer and cutaneous abscess of her right lower extremity. Has a history significant for dementia, and insufficiency, bradycardia, allergic contact dermatitis, hypertension, and colitis of the right lower extremity. Patient currently taking Bactrim at [facility]. She had no treatment other than what is been mentioned and no aggravating factors. Hospital Course Hospital Course: The patient was admitted to the medical floor. She was empirically placed on IV vancomycin and Zosyn for treatment of a healthcare associated pneumonia, UTI, and right hip abscess. Cultures were resulted, antibiotics were narrowed. She was briefly transitioned to IV Rocephin prior to finalized sensitivity results. Fortunately, the patient is sensitive to Bactrim. Initial blood culture results did grow staph epi and staph hominis; both sensitive to vancomycin and Bactrim. She will be adequately treated for b acteremia exclusion of treatment for her wound infection. Patient underwent surgical I&D to the right hip abscess by Dr. Guido. Wound cultures positive for MRSA sensitive to Bactrim. She has been transitioned to Bactrim with continued improvement in her leukocytosis. Surgery recommends continued wet-to-dry dressings twice daily and follow-up in the wound care clinic within 1 to 2 weeks. Her HAP has resolved; she is now maintaining oxygen saturations on room air with clear lung sounds. Recommend continued pulmonary toilet as patient is able to tolerate/participate. Urinary tract infection with urine culture growing Proteus Mirabella's was penicillin sensitive. She is received a full course of appropriate therapy. The patient is now oriented to her baseline. She is eating more than 50% of each meal. She remains afebrile with a continued downward trend in her WBCs. She is now stable for discharge to SNF for continued care. Physical Exam Vital Signs: Temp Pulse Resp BP Pulse Ox 97.6 F 54 L 20 106/54 L 94 07/02/19 08:00 07/02/19 08:00 07/02/19 08:00 07/02/19 08:00 07/02/19 08:00 Intake & Output 07/01/19 07/02/19 07/03/19 06:59 06:59 06:59 Intake Total 910 970 Balance 910 970 Weight 96.8 kg 116.4 kg 99.8 kg General appearance: PRESENT: no acute distress, hard of hearing, obese, well- developed, well-nourished Head exam: PRESENT: atraumatic, normocephalic Eye exam: PRESENT: conjunctiva pink, EOMI, PERRLA. ABSENT: scleral icterus Ear exam: PRESENT: normal external ear exam Mouth exam: PRESENT: moist, tongue midline Teeth exam: PRESENT: poor dentation Respiratory exam: PRESENT: clear to auscultation drew, symmetrical, unlabored, other - Room air. ABSENT: rales, rhonchi, wheezes Cardiovascular exam: PRESENT: irregular rhythm, +S1, +S2. ABSENT: diastolic murmur, rubs, systolic murmur Pulses: PRESENT: normal dorsalis pedis pul Vascular exam: PRESENT: normal capillary refill GI/Abdominal exam: PRESENT: normal bowel sounds, soft. ABSENT: distended, guarding, mass, organolmegaly, rebound, tenderness Rectal exam: PRESENT: deferred Extremities exam: PRESENT: full ROM, pedal edema - Bilaterally. ABSENT: calf tenderness, clubbing Neurological exam: PRESENT: alert, awake, oriented to person, CN II-XII grossly intact, other - Pleasantly confused; conversational and socially appropriate. ABSENT: oriented to place, oriented to time, oriented to situation, motor sensory deficit Psychiatric exam: PRESENT: appropriate affect, normal mood. ABSENT: homicidal ideation, suicidal ideation Skin exam: PRESENT: dry, warm. ABSENT: cyanosis, intact - Right hip wound s/p I&D by surgery; clean dry dressing intact., rash Results Laboratory Results: WBC 11.1 10^3/uL (4.0-10.5) H 07/02/19 06:28 RBC 2.87 10^6/uL (3.72-5.28) L 07/02/19 06:28 Hgb 8.6 g/dL (12.0-15.5) L 07/02/19 06:28 Hct 25.9 % (36.0-47.0) L 07/02/19 06:28 MCV 90 fl (80-97) 07/02/19 06:28 MCH 30.1 pg (27.0-33.4) 07/02/19 06:28 MCHC 33.4 g/dL (32.0-36.0) 07/02/19 06:28 RDW 15.4 % (11.5-14.0) H 07/02/19 06:28 Plt Count 369 10^3/uL (150-450) 07/02/19 06:28 Lymph % (Auto) 10.5 % (13-45) L 06/27/19 07:32 [place] % (Auto) 4.6 % (3-13) 06/27/19 07:32 Eos % (Auto) 0.6 % (0-6) 06/27/19 07:32 Baso % (Auto) 0.7 % (0-2) 06/27/19 07:32 Absolute Neuts (auto) 12.1 10^3/uL (1.7-8.2) H 06/27/19 07:32 Absolute Lymphs (auto) 1.5 10^3/uL (0.5-4.7) 06/27/19 07:32 Absolute Monos (auto) 0.7 10^3/uL (0.1-1.4) 06/27/19 07:32 Absolute Eos (auto) 0.1 10^3/uL (0.0-0.6) 06/27/19 07:32 Absolute Basos (auto) 0.1 10^3/uL (0.0-0.2) 06/27/19 07:32 Seg Neutrophils % 83.6 % (42-78) H 06/27/19 07:32 PT 17.1 SEC (11.4-15.4) H 06/27/19 07:32 INR 1.38 06/27/19 07:32 VBG pH 7.45 (7.30-7.42) H 06/27/19 07:32 VBG pCO2 38.6 mmHg (35-63) 06/27/19 07:32 VBG HCO3 26.5 mmol/L (20-32) 06/27/19 07:32 VBG Base Excess 2.4 mmol/L 06/27/19 07:32 Sodium 136.4 mmol/L (137-145) L 07/01/19 08:13 Potassium 3.5 mmol/L (3.6-5.0) L 07/01/19 08:13 Chloride 103 mmol/L (98-107) 07/01/19 08:13 Carbon Dioxide 27 mmol/L (22-30) 07/01/19 08:13 Anion Gap 6 (5-19) 07/01/19 08:13 BUN 9 mg/dL (7-20) 07/01/19 08:13 Creatinine 0.46 mg/dL (0.52-1.25) L 07/01/19 08:13 Est GFR ( Amer) > 60 (>60) 07/01/19 08:13 Est GFR (MDRD) Non-Af > 60 (>60) 07/01/19 08:13 Glucose 101 mg/dL (75-110) 07/01/19 08:13 POC Glucose 144 mg/dL (70-110) H 06/27/19 17:14 Hemoglobin A1c % 5.1 % (4.7-6.0) 06/28/19 05:47 Lactic Acid 0.7 mmol/L (0.7-2.1) 06/27/19 07:32 Calcium 8.1 mg/dL (8.4-10.2) L 07/01/19 08:13 Phosphorus 3.2 mg/dL (2.5-4.5) 06/28/19 05:47 Magnesium 1.8 mg/dL (1.6-2.3) 06/28/19 05:47 Total Bilirubin 0.7 mg/dL (0.2-1.3) 06/27/19 07:32 Direct Bilirubin 0.3 mg/dL (0.0-0.4) 06/27/19 07:32 Neonat Total Bilirubin Not Reportable 06/27/19 07:32 Neonat Direct Bilirubin Not Reportable 06/27/19 07:32 Neonat Indirect Bili Not Reportable 06/27/19 07:32 AST 13 U/L (14-36) L 06/27/19 07:32 ALT 8 U/L (<35) 06/27/19 07:32 Alkaline Phosphatase 82 U/L (38-126) 06/27/19 07:32 Troponin I < 0.012 ng/mL 06/27/19 07:32 Total Protein 5.1 g/dL (6.3-8.2) L 06/27/19 07:32 Albumin 2.4 g/dL (3.5-5.0) L 06/27/19 07:32 Urine Color MELINA 06/27/19 08:10 Urine Appearance CLOUDY 06/27/19 08:10 Urine pH 7.0 (5.0-9.0) 06/27/19 08:10 Ur Specific [place] 1.023 06/27/19 08:10 Urine Protein 100 mg/dL (NEGATIVE) H 06/27/19 08:10 Urine Glucose (UA) NEGATIVE mg/dL (NEGATIVE) 06/27/19 08:10 Urine Ketones NEGATIVE mg/dL (NEGATIVE) 06/27/19 08:10 Urine Blood SMALL (NEGATIVE) H 06/27/19 08:10 Urine Nitrite NEGATIVE (NEGATIVE) 06/27/19 08:10 Urine Bilirubin NEGATIVE (NEGATIVE) 06/27/19 08:10 Urine Urobilinogen 4.0 mg/dL (<2.0) H 06/27/19 08:10 Ur Leukocyte Esterase LARGE (NEGATIVE) H 06/27/19 08:10 Urine WBC (Auto) 53 /HPF 06/27/19 08:10 Urine RBC (Auto) 2 /HPF 06/27/19 08:10 Urine Bacteria (Auto) 1+ /HPF 06/27/19 08:10 Squamous Epi Cells Auto 1 /HPF 06/27/19 08:10 Urine Mucus (Auto) RARE /LPF 06/27/19 08:10 Urine Ascorbic Acid 40 (NEGATIVE) H 06/27/19 08:10 Time Trough Drawn 0948 06/29/19 09:48 Vancomycin Trough 17.5 ug/mL (5.0-20.0) 06/29/19 09:48 06/27/19 07:32 Troponin I < 0.012 Impressions: Chest X-Ray 06/27/19 07:45 IMPRESSION: Bibasilar airspace disease atelectasis versus pneumonia. Densities over the right upper lobe could be upper lobe airspace disease or healed rib fractures Plan Plan of Treatment: Patient is discharged to [facility] for continued rehabilitation services. Recommend patient follow-up with her PCP within 1 week. Patient should follow-up with the wound care clinic within 1 week. Continue wet-to-dry dressings to the right hip wound twice daily and as needed. Complete course of Bactrim. Take other medications as prescribed. Strongly recommend palliative care consultation, and or, goals of care discussion to evaluate appropriateness for continued palliative care with hospice bridge. Return to the emergency department as needed for concerning symptoms. Time Spent: Greater than 30 Minutes Stroke Is this a Stroke Patient?: No Acute Heart Failure - Is this a Heart Failure Patient?: No
[2019-07-02 13:18] VITALS: BP 122/65
== END 2019-07-02 14:00 | DRG 570 ==
LOC: ER 07:17 → EH 10:38 → 5 12:29
PROVIDERS: ADMIT Internal Medicine; ATTEND Internal Medicine
PROC: 0JBL0ZZ Excision of Right Upper Leg Subcutaneous Tissue and Fascia, Open Approach (ICD-10-PCS; principal; 2019-06-27)
PROC: 0Y973ZZ Drainage of Right Femoral Region, Percutaneous Approach (ICD-10-PCS; 2019-06-30)
DX: L02.415 Cutaneous abscess of right lower limb (principal); J18.9 Pneumonia, unspecified organism; N39.0 Urinary tract infection, site not specified; R78.81 Bacteremia; Y95 Nosocomial condition; Z66 Do not resuscitate; I10 Essential (primary) hypertension; F03.90 Unspecified dementia, unspecified severity, without behavioral disturbance, psychotic disturbance, mood disturbance, and anxiety; B95.62 Methicillin resistant Staphylococcus aureus infection as the cause of diseases classified elsewhere; R73.9 Hyperglycemia, unspecified; I48.91 Unspecified atrial fibrillation; R31.9 Hematuria, unspecified; L89.212 Pressure ulcer of right hip, stage 2; Z79.899 Other long term (current) drug therapy; Z82.49 Family history of ischemic heart disease and other diseases of the circulatory system; Z79.01 Long term (current) use of anticoagulants
CPT/HCPCS: 36415; 51701; 71045; 80048; 80053; 80202; 81001; 82803; 82962; 83036; 83605; 83735; 84100; 84484; 85025; 85027; 85610; 87040; 87070; 87075; 87077; 87086; 87088; 87150; 87186; 87205; 93005; 93010; 96361; 96365; 99285; J0456; J0696; J1644; J2543; J3370; J3490; J7030; J7050; J7060; J7120

== ENCOUNTER 2019-07-03 18:41 | Emergency (ER) | payer MEDICARE, OTHER, MEDICAID ==
[2019-07-03 23:55] LABS: HEMATOCRIT 27.4 % (36.0-47.0); HEMOGLOBIN 9.3 g/dL (12.0-15.5); MEAN CORPUSCULAR HEMOGLOBIN 30.9 pg (27.0-33.4); MEAN CORPUSCULAR HGB CONC 33.9 g/dL (32.0-36.0); MEAN CORPUSCULAR VOLUME 91 fl (80-97); PLATELET COUNT 420 10^3/uL (150-450); RED BLOOD COUNT 3.01 10^6/uL (3.72-5.28); RED CELL DISTRIBUTION WIDTH 15.7 % (11.5-14.0); WHITE BLOOD COUNT 10.7 10^3/uL (4.0-10.5)
[2019-07-04 00:01] LABS: ALBUMIN 2.3 g/dL (3.5-5.0); ALKALINE PHOSPHATASE 71 U/L (38-126); ASPARTATE AMINO TRANSFERASE 13 U/L (14-36); BILIRUBIN,DIRECT 0.1 mg/dL (0.0-0.4); BILIRUBIN,TOTAL 0.3 mg/dL (0.2-1.3); BLOOD UREA NITROGEN 11 mg/dL (7-20); CALCIUM 8.5 mg/dL (8.4-10.2); CARBON DIOXIDE 34 mmol/L (22-30); CHLORIDE 100 mmol/L (98-107); GLUCOSE 156 mg/dL (75-110); POTASSIUM 3.5 mmol/L (3.6-5.0); TOTAL PROTEIN 4.9 g/dL (6.3-8.2)
[2019-07-04 00:08] LABS: ANION GAP 4 (5-19)
[2019-07-04 00:15] LABS: ABSOLUTE LYMPHOCYTES# (MANUAL) 1.7 10^3/uL (0.5-4.7); ABSOLUTE MONOCYTES # (MANUAL) 0.4 10^3/uL (0.1-1.4); BASOPHILS % (MANUAL) 1 % (0-2); EOSINOPHILS % (MANUAL) 5 % (0-6); LYMPHOCYTES % (MANUAL) 16 % (13-45); MONOCYTES % (MANUAL) 4 % (3-13); SEGMENTED NEUTROPHILS % (MAN) 74 % (42-78); TOTAL CELLS COUNTED 100
[2019-07-04 00:16] LABS: ANISOCYTOSIS SLIGHT; PLATELET COMMENT ADEQUATE; TOXIC GRANULATION SLIGHT
--- NOTE | 2019-07-04 01:14 | ER Document Report ---
ED General - General Chief Complaint: Wound Infection Stated Complaint: HIP WOUND Time Seen by Provider: 07/03/19 21:51 Primary Care Provider: LONNIE JJ MD [Primary Care Provider] - Follow up as needed Mode of Arrival: Medic Information source: Patient, Relative, Transfer Record Notes: This 83-year-old woman brought to the emergency department with history of recent hospitalization apparently treated for possible sepsis. Blood culture x1+ for MRSA, hip wound culture also positive for MRSA. Patient was sent to the emergency department, reports positive blood culture for MRSA, wound culture positive for MRSA. Patient had blood cultures on 06/29/19 were negative prior to her discharge from the hospital. She also had a decreasing WBC count and improved overall condition, appetite, activity prior to her discharge to the long-term care facility. Patient's daughter notes that she is doing well, ate well today and was very interactive singing and smiling. Presently the patient is in no deteriorated state and is questioning why they are here. TRAVEL OUTSIDE OF THE [place] IN LAST 30 DAYS: No - Related Data Allergies/Adverse Reactions: No Known Allergies Allergy (Unverified 12/26/18 11:11) Past Medical History - General Information source: Relative, Transfer Record - Social History Smoking Status: Unknown if Ever Smoked Family History: Reviewed & Not Pertinent Patient has suicidal ideation: No Patient has homicidal ideation: No - Past Medical History Cardiac Medical History: Reports: Hx Atrial Fibrillation, Hx Hypertension Denies: Hx Coronary Artery Disease, Hx Heart Attack Pulmonary Medical History: Denies: Hx Asthma, Hx Bronchitis, Hx COPD, Hx Pneumonia Neurological Medical History: Denies: Hx Cerebrovascular Accident, Hx Seizures Renal/ Medical History: Denies: Hx Peritoneal Dialysis Musculoskeletal Medical History: Denies Hx Arthritis Past Surgical History: Reports: Hx Orthopedic Surgery Review of Systems - Review of Systems Notes: REVIEW OF SYSTEMS GENERAL: Negative for any nausea, vomiting, fevers, chills NEUROLOGIC: Negative for any dysphagia, dysarthria, hemiparesis, hemisensory deficits, vertigo HEENT: Negative for any head trauma, neck trauma, neck stiffness, PULMONARY: Negative for any shortness of breath, wheezing, COPD, or TB exposure. GASTROINTESTINAL: Negative for any abdominal pain, nausea, vomiting GENITOURINARY: Negative for any dysuria, hematuria, incontinence. INTEGUMENTARY: Negative for any rashes RHEUMATOLOGIC: Negative for any joint pains HEMATOLOGIC: Negative for any abnormal bruising, frequent infections or bleeding. Physical Exam - Vital signs Vitals: Temp Pulse Resp BP Pulse Ox 98.6 F 61 18 123/53 L 95 07/03/19 19:01 07/03/19 19:01 07/03/19 19:01 07/03/19 19:01 07/03/19 19:01 - Notes Notes: PHYSICAL EXAMINATION: GENERAL: Pleasant elderly female in no acute distress HEAD: Atraumatic, normocephalic. EYES: Pupils equal round and reactive to light, extraocular movements intact, sclera anicteric, conjunctiva are normal. ENT: nares patent, oropharynx clear without exudates. Moist mucous membranes. NECK: Normal range of motion, supple without lymphadenopathy LUNGS: Breath sounds clear to auscultation bilaterally and equal. No wheezes rales or rhonchi. HEART: Regular rate and rhythm without murmurs ABDOMEN: Soft, nontender, normoactive bowel sounds. No guarding, no rebound. No masses appreciated. EXTREMITIES: No cyanosis. NEUROLOGICAL: No focal neurological deficits. Moves all extremities spontaneously and on command. PSYCH: Mildly spontaneously and able to meaningful conversation, normal mood, normal affect. SKIN: Warm, Dry, normal turgor, no rashes or lesions noted. Course - Re-evaluation Re-evalutation: 07/04/19 01:27 Discussed with patient and her daughter the fact that she does not appear to have signs of sepsis and or SIRS is my believe that she does not need to be hospitalized given IV antibiotics at this time. We will recheck her white cell count and electrolytes, if all are good, the patient will be admitted discharge back to the long-term care facility. The patient and her family are in agreement with this plan. - Vital Signs Vital signs: Temp Pulse Resp BP Pulse Ox 98.3 F 62 20 108/51 L 93 07/03/19 22:48 07/03/19 22:48 07/03/19 22:48 07/03/19 22:48 07/03/19 22:48 - Laboratory Result Diagrams: 07/03/19 18:58 07/03/19 18:58 Laboratory results interpreted by me: 07/03/19 07/03/19 18:58 18:58 WBC 10.7 H RBC 3.01 L Hgb 9.3 L Hct 27.4 L RDW 15.7 H Potassium 3.5 L Carbon Dioxide 34 H Anion Gap 4 L Creatinine 0.51 L Glucose 156 H AST 13 L Total Protein 4.9 L Albumin 2.3 L Discharge - Discharge Clinical Impression: History of MRSA infection, Anemia of chronic disease Condition: Good Disposition: SNF-Other Referrals: LONNIE JJ MD [Primary Care Provider] - Follow up as needed
[2019-07-04 02:31] VITALS: BP 106/55
== END 2019-07-04 02:20 ==
LOC: ER 18:41
DX: Z09 Encounter for follow-up examination after completed treatment for conditions other than malignant neoplasm (principal); Z86.14 Personal history of Methicillin resistant Staphylococcus aureus infection; D64.9 Anemia, unspecified; I10 Essential (primary) hypertension
CPT/HCPCS: 36415; 80053; 85025; 99284